=== PATIENT | female | born 1960 | race Caucasian/White ===

== ENCOUNTER 2016-11-01 12:46 | Emergency (ER) | payer OTHER ==
[2016-11-01 12:54] VITALS: BP 131/64; PULSE 93; TEMP 98; BMI 28.3
[2016-11-01] MEDS ORDERED: diphenhydrAMINE HCL 25 MG CAPSULE (FP) PO ONE ×2 (13:22→13:28)
--- NOTE | 2016-11-01 13:23 | PDOC ---
History of Present Illness - General Chief Complaint: Itching Stated Complaint: HEAD SWELLING Time Seen by Provider: 11/01/16 12:58 - History of Present Illness Initial Comments: 11/01/16 13:22 CHIEF COMPLAINT: itching to scalp, "swelling to forehead" HISTORY OF PRESENT ILLNESS: 56 yo F PMH of of benign meningioma (Removed 2004) which has recurred, anxiety and depression presents to fast track with itching to scalp and c/o of swelling to forehead. Patient reports that she used a hair dye two days ago and her scalp started itching and the tops of her ears "feel like it's burning." PAST MEDICAL HISTORY: Denies past medical history FAMILY HISTORY: Denies SOCIAL HISTORY:Denies tobacco, alcohol, illicit drug use. SURGICAL HISTORY: Denies ALLERGIES: No known drug allergies REVIEW OF SYSTEMS General/Constitutional: Denies fever or chills. Denies weakness, weight change. HEENT: Denies change in vision. Denies ear pain or discharge. Denies sore throat. Cardiovascular: Denies chest pain or shortness of breath. Respiratory: Denies cough, wheezing, or hemoptysis. Gastrointestinal: Denies nausea, vomiting, diarrhea or constipation. Denies rectal bleeding. Genitourinary: Denies dysuria, frequency, or change in urination. Musculoskeletal: Denies joint or muscle swelling or pain. Denies neck or back pain. Skin: Itching to scalp, "swelling to top of forehead." PHYSICAL EXAM General Appearance: Well-appearing, appropriately dressed. No apparent distress. HEENT: EOMI, PERRLA. Neck: Supple. Trachea midline. No tenderness, rigidity, carotid bruit, stridor , lymphadenopathy, or thyromegaly. Respiratory/Chest: Lungs CTAB. Cardiovascular: RRR. S1, S2. Gastrointestinal/Abdominal: Normal bowel sounds. Abdomen soft, non-distended. No tenderness or rebound tenderness. No organomegaly, pulsatile mass, guarding , hernia, hepatomegaly, splenomegaly. Lymphatic: No adenopathy, tenderness. Musculoskeletal/Extremities: Normal inspection. FROM of all extremities, normal capillary refill. Pelvis Stable. No CVA tenderness. No tenderness to extremities, pedal edema, swelling, erythema or deformity. Integumentary: Appropriate color, dry, warm. No cyanosis, erythema, jaundice or rash Neurologic: financial market dealer II-XII intact. Fully oriented, alert. Appropriate mood/affect. Motor strength 5/5. No appreciable EOM palsy, facial droop or sensory deficit. 11/01/16 13:24 11/01/16 13:32 Past History - Past Medical History Allergies/Adverse Reactions: Allergies Allergy/AdvReac Type Severity Reaction Status Date / Time No Known Drug Allergies Allergy Verified 11/01/16 12:53 Home Medications: Ambulatory Orders Clonazepam [Klonopin] 0.5 mg PO BID 09/30/12 Paroxetine HCl 25 mg PO DAILY 05/02/15 Aspirin [ASA -] 81 mg PO DAILY 01/03/16 Doxepin HCl [Sinequan -] 25 mg PO HS 01/03/16 Phenazopyridine HCl [Pyridium] 200 mg PO TID PRN #6 tablet 03/16/16 Loratadine [Claritin] 10 mg PO DAILY #14 tablet 11/01/16 Anemia: No Asthma: Yes Cancer: No Cardiac Disorders: No CVA: No COPD: No CHF: No Dementia: No Diabetes: No GI Disorders: Yes (gastritis) Disorders: No HTN: No Hypercholesterolemia: Yes Liver Disease: No Psychiatric Problems: Yes (ANXIETY DEPRESSION) Seizures: No Thyroid Disease: Yes (pituitary tumor) - Surgical History Abdominal Surgery: No Appendectomy: No Cardiac Surgery: No Cholecystectomy: No Lung Surgery: No Neurologic Surgery: Yes (benign brain tumor surgery 2004) Orthopedic Surgery: No (left knee ligament sx) - Immunization History Immunization Up to Date: Yes - Psycho/Social/Smoking Cessation Hx Anxiety: No Suicidal Ideation: No Smoking Status: No Smoking History: Never smoked Have you smoked in the past 12 months: No Number of Cigarettes Smoked Daily: 0 If you are a former smoker, when did you quit?: 2004 Hx Alcohol Use: No Drug/Substance Use Hx: No Substance Use Type: None Hx Substance Use Treatment: No *Physical Exam - Vital Signs Last Vital Signs Temp Pulse Resp BP Pulse Ox 98.0 F 93 H 20 131/64 96 11/01/16 12:50 11/01/16 12:50 11/01/16 12:50 11/01/16 12:50 11/01/16 12:50 Medical Decision Making - Medical Decision Making 11/01/16 13:32 56 yo F PMH of of benign meningioma (Removed 2004) which has recurred, anxiety and depression presents to fast track with itching to scalp and c/o of swelling to forehead. -Benadryl 25 mg *DC/Admit/Observation/Transfer Diagnosis at time of Disposition: Allergic reaction Qualifiers: Encounter type: initial encounter Qualified Code(s): T78.40XA - Allergy, unspecified, initial encounter - Discharge Dispostion Disposition: HOME Condition at time of disposition: Stable Admit: No - Prescriptions Prescriptions: Loratadine [Claritin] 10 mg PO DAILY #14 tablet - Referrals Referrals: Joyce House MD [Staff Physician] - - Patient Instructions Printed Discharge Instructions: DI for Contact Dermatitis Additional Instructions: Please take medication as prescribed. Follow up with the director of special education as discussed for further evaluation of your skin allergies. Do NOT use any hair dye until you have been evaluated by the director of special education to avoid contact with any ingredients that may trigger an allergic reaction. If you experience any difficulty breathing, shortness of breath, swelling to your tongue, mouth, lips , or throat, please return to the ER.
== END 2016-11-01 13:36 | disposition home or self-care (01) ==
LOC: JERFT 12:46
DX: T49.4X1A Poisoning by keratolytics, keratoplastics, and other hair treatment drugs and preparations, accidental (unintentional), initial encounter (principal); L29.8 Other pruritus; Y92.89 Other specified places as the place of occurrence of the external cause
CPT/HCPCS: 99281-25

== ENCOUNTER 2016-12-07 19:30 | Emergency (ER) | payer OTHER ==
[2016-12-07 19:48] VITALS: BP 140/71; PULSE 89; TEMP 98.4; BMI 28.3
[2016-12-07] MEDS ORDERED: MAG HYDROX/AL HYDROX/SIMETH 30 ML UNIT-DOSE CUP PO ONE (22:17)
[2016-12-07] MEDS ORDERED: SODIUM CHLORIDE 1,000 ML IV STA (22:17)
[2016-12-07] MEDS ORDERED: PANTOPRAZOLE 40 MG TABLET (FP) PO ONE (22:18)
[2016-12-07] MEDS ORDERED: MAG HYDROX/AL HYDROX/SIMETH 30 ML UNIT-DOSE CUP ONE (22:35)
[2016-12-07] MEDS ORDERED: PANTOPRAZOLE 40 MG TABLET (FP) ONE (22:35)
[2016-12-07 22:50] LABS: BASOPHIL 0.6 % (0-2.0); EOSINOPHIL 3.3 % (0-4.5); MCH 27.3 pg (25.7-33.7); MCHC 32.5 g/dl (32.0-36.0); MEAN CELL VOLUME 83.8 fl (80-96); MEAN PLT VOLUME 8.9 fl (7.5-11.1); PLATELET COUNT 234 K/MM3 (134-434); WHITE BLOOD COUNT 6.6 K/mm3 (4.0-10.0)
[2016-12-07 22:58] LABS: URINE APPEARANCE CLEAR; URINE BILIRUBIN NEGATIVE (NEGATIVE); URINE BLOOD NEGATIVE (NEGATIVE); URINE COLOR STRAW; URINE GLUCOSE (UA) NEGATIVE (NEGATIVE); URINE KETONE NEGATIVE (NEGATIVE); URINE LEUK ESTERASE TRACE (NEGATIVE); URINE NITRITE NEGATIVE (NEGATIVE); URINE PROTEIN NEGATIVE (NEGATIVE); URINE UROBILINOGEN NEGATIVE mg/dL (0.2-1.0)
[2016-12-07 23:02] LABS: URINE RBC 1 /hpf (0-3); URINE WBC 2 /hpf (3-5)
[2016-12-07 23:23] LABS: ALBUMIN 3.8 g/dl (3.4-5.0); ANION GAP 6 (8-16); BILIRUBIN,TOTAL 0.3 mg/dL (0.2-1.0); CALCIUM 9.1 mg/dL (8.5-10.1); CO2 31 mmol/L (21-32); CREATININE 0.6 mg/dL (0.55-1.02); GLUCOSE,RANDOM 99 mg/dL (74-106); SGOT/AST 19 U/L (15-37); SGPT/ALT 31 U/L (12-78); TOT PROT 7.4 g/dl (6.4-8.2)
[2016-12-07 23:26] LABS: ALK PHOS 196 U/L (45-117); CPK 154 IU/L (26-192); TROPONIN I < 0.02 ng/ml (0.00-0.05)
--- NOTE | 2016-12-08 00:31 | PDOC ---
History of Present Illness - General Chief Complaint: Pain Stated Complaint: STOMACH PAIN/EMPLOYEE Time Seen by Provider: 12/07/16 22:00 History Source: Patient Exam Limitations: No Limitations - History of Present Illness Initial Comments: 12/08/16 01:01 This is a 56 yo woman with PMH pituitary adenoma s/p resection '05, anxiety, asthma, OA, GERD and IMER-BSO who presents with sudden onset epigastric burning at approximately 6pm. She states she woke up with the burning after a nap. She drank some milk and ate some white bread with improvement of symptoms. She now has a sour taste in her mouth. She denies chest pain, SOB, vomiting, dizziness , jaw pain or nausea. She states the pain is c/w her usual GERD. Timing/Duration: 4-6 hours Severity: mild Modifying Factors: improves with: eating (better after drinking milk and eating white bread) Associated Symptoms: denies: denies symptoms Past History - Past Medical History Allergies/Adverse Reactions: Allergies Allergy/AdvReac Type Severity Reaction Status Date / Time No Known Drug Allergies Allergy Verified 12/07/16 19:44 Home Medications: Ambulatory Orders Clonazepam [Klonopin] 0.5 mg PO BID 09/30/12 Paroxetine HCl 25 mg PO DAILY 05/02/15 Aspirin [ASA -] 81 mg PO DAILY 01/03/16 Doxepin HCl [Sinequan -] 25 mg PO HS 01/03/16 Phenazopyridine HCl [Pyridium] 200 mg PO TID PRN #6 tablet 03/16/16 Loratadine [Claritin] 10 mg PO DAILY #14 tablet 11/01/16 Omeprazole 20 mg PO DAILY #30 capsule. 12/08/16 Anemia: No Asthma: Yes Cancer: No Cardiac Disorders: No CVA: No COPD: No CHF: No Dementia: No Diabetes: No GI Disorders: Yes (gastritis) Disorders: No HTN: No Hypercholesterolemia: Yes Liver Disease: No Psychiatric Problems: Yes (ANXIETY DEPRESSION) Seizures: No Thyroid Disease: Yes (pituitary tumor) - Surgical History Abdominal Surgery: No Appendectomy: No Cardiac Surgery: No Cholecystectomy: No Lung Surgery: No Neurologic Surgery: Yes (Pituitary benign brain tumor surgery 2004) Orthopedic Surgery: No (left knee ligament sx) - Immunization History Immunization Up to Date: Yes - Psycho/Social/Smoking Cessation Hx Anxiety: No Suicidal Ideation: No Smoking Status: No Smoking History: Never smoked Have you smoked in the past 12 months: No Number of Cigarettes Smoked Daily: 0 If you are a former smoker, when did you quit?: 2004 Information on smoking cessation initiated: No Hx Alcohol Use: No Drug/Substance Use Hx: No Substance Use Type: None Hx Substance Use Treatment: No Review of Systems - Review of Systems Able to Perform ROS?: Yes Is the patient limited [place] proficient: No Constitutional: No: Symptoms Reported HEENTM: Yes: Other (sour taste in mouth) Respiratory: No: Symptoms reported Cardiac (ROS): Yes: Other (epigastric burning) ABD/GI: Yes: Other (epigastric burning) : No: Symptoms Reported Musculoskeletal: No: Symptoms Reported Integumentary: No: Symptoms Reported Neurological: No: Symptoms reported *Physical Exam - Vital Signs Last Vital Signs Temp Pulse Resp BP Pulse Ox 98.4 F 89 20 140/71 99 12/07/16 19:44 12/07/16 19:44 12/07/16 19:44 12/07/16 19:44 12/07/16 19:44 - Physical Exam General Appearance: Yes: Appropriately Dressed. No: Apparent Distress HEENT: positive: EOMI, STEVE, Normal ENT Inspection, TMs Normal, Pharynx Normal Neck: positive: Trachea midline, Supple. negative: Tender Respiratory/Chest: positive: Lungs Clear, Normal Breath Sounds. negative: Chest Tender, Respiratory Distress, Accessory Muscle Use Cardiovascular: positive: Regular Rhythm, Regular Rate, S1, S2. negative: Edema , JVD, Murmur Musculoskeletal: positive: Normal Inspection. negative: CVA Tenderness Extremity: positive: Normal Capillary Refill, Normal Inspection, Normal Range of Motion, Pelvis Stable Integumentary: positive: Normal Color, Dry, Warm Neurologic: positive: program facilitator II-XII NML intact, Fully Oriented, Alert, Normal Mood/ Affect, Normal Response, Motor Strength 5/5 Heart Score/ECG Review - History History: Slightly suspicious - Electrocardiogram EKG: Normal - Age Age: 45-65 - Risk Factors Based on the list above the patient has:: No risk factors known - Troponin Troponin: </= normal limit - Score Heart Score - Total: 1 - ECG Intrepretation Rhythm: Regular Rhythm - Reading Reading: Normal - ECG Impressions Normal ECG: Yes ED Treatment Course - LABORATORY CBC & Chemistry Diagram: 08/03/17 22:37 12/07/16 22:37 - ADDITIONAL ORDERS Additional order review: Laboratory Results 12/07/16 12/07/16 22:37 22:37 Sodium 141 Potassium 4.1 Chloride 104 Carbon Dioxide 31 Anion Gap 6 L BUN 14 Creatinine 0.6 Creat Clearance w eGFR > 60 Random Glucose 99 Calcium 9.1 Total Bilirubin 0.3 D AST 19 ALT 31 D Alkaline Phosphatase 196 H D Creatine Kinase 154 Troponin I < 0.02 Total Protein 7.4 Albumin 3.8 Urine Color Straw Urine Appearance Clear Urine pH 7.0 Urine Protein Negative Urine Glucose (UA) Negative Urine Ketones Negative Urine Blood Negative Urine Nitrite Negative Urine Bilirubin Negative Urine Urobilinogen Negative Ur Leukocyte Esterase Trace Urine RBC 1 Urine WBC 2 Ur Epithelial Cells Rare 12/07/16 22:37 RBC 4.69 MCV 83.8 MCHC 32.5 RDW 13.0 MPV 8.9 Neutrophils % 49.0 Lymphocytes % 40.4 H Monocytes % 6.7 Eosinophils % 3.3 Basophils % 0.6 - RADIOLOGY Radiology Studies Ordered: Category Date Time Status CHEST PA & LAT [RAD] Stat Radiology 12/07/16 22:17 Ordered - Medications Given in the ED: ED Medications Discontinued Medications Generic Name Dose Route Start Last Admin Trade Name Freq PRN Reason Stop Dose Admin Al Hydroxide/Mg Hydroxide 30 ml 12/07/16 22:17 12/07/16 22:44 Mylanta Oral Suspension - PO 12/07/16 22:18 30 ml ONCE ONE Administration Sodium Chloride 1,000 mls @ 1,000 mls/hr 12/07/16 22:17 12/07/16 22:44 Normal Saline - IV 12/07/16 23:16 1,000 mls/hr ASDIR STA Administration Pantoprazole Sodium 40 mg 12/07/16 22:18 12/07/16 22:44 Protonix - PO 12/07/16 22:19 40 mg ONCE ONE Administration Medical Decision Making - Medical Decision Making 12/07/16 23:05 A/P: This is a 56 yo woman with PMH pituitary adenoma s/p resection '05, anxiety, asthma, OA, GERD and IMER-BSO who presents with sudden onset epigastric burning at approximately 6pm. She states she woke up with the burning after a nap. She drank some milk and ate some white bread with improvement of symptoms. She now has a sour taste in her mouth. She denies chest pain, SOB, vomiting, dizziness , jaw pain or nausea. She states the pain is c/w her usual GERD. - EKG - CBC, CMP, trop, UA - CXR - Maalox - Protonix 12/08/16 01:05 Feels better after Maalox and protonix. She is refusing CXR at this time. Troponin #1 (-). I discussed the physical exam findings, ancillary test results and final diagnoses with the patient. I answered all of the patient's questions. The patient was satisfied with the care received and felt comfortable with the discharge plan and treatment plan. The patient will call Dr. Raya within 24 hours to arrange follow-up and will return to the Emergency Department with any new, persistent or worsening symptoms. Will discharge. *DC/Admit/Observation/Transfer Diagnosis at time of Disposition: GERD (gastroesophageal reflux disease) Qualifiers: Esophagitis presence: without esophagitis Qualified Code(s): K21.9 - Gastro- esophageal reflux disease without esophagitis - Discharge Dispostion Admit: No - Prescriptions Prescriptions: Omeprazole 20 mg PO DAILY #30 capsule.dr - Referrals Referrals: Susi Donaldson MD [Primary Care Provider] - - Patient Instructions Printed Discharge Instructions: DI for Gastroesophageal Reflux Disease (GERD), GERD Diet Additional Instructions: Avoid greasy foods, spicy foods and alcohol. Keep well hydrated. Call Dr. Raya tomorrow for appointment as soon as possible. Return to ER for chest pain, shortness of breath, cough, dizziness or any other concerns.
--- NOTE | 2016-12-08 10:21 | EKG ---
Test Reason : Blood Pressure : / mmHG Vent. Rate : 077 BPM Atrial Rate : 080 BPM P-R Int : 000 ms QRS Dur : 084 ms QT Int : 390 ms P-R-T Axes : 000 021 032 degrees QTc Int : 441 ms Normal sinus rhythm with frequent APCs INCOMPLETE RBBB Confirmed by AUBRIE BRYSON MD ([id number]) on 12/08/2016 10:20:40 AM Referred By: Confirmed By:AUBRIE BRYSON MD
== END 2016-12-08 00:37 | disposition home or self-care (01) ==
LOC: JER 19:30
PROC: 3E0337Z Introduction of Electrolytic and Water Balance Substance into Peripheral Vein, Percutaneous Approach (ICD-10-PCS; principal; 2016-12-07)
DX: K21.9 Gastro-esophageal reflux disease without esophagitis (principal); J45.909 Unspecified asthma, uncomplicated; M19.90 Unspecified osteoarthritis, unspecified site; F41.9 Anxiety disorder, unspecified
CPT/HCPCS: 36415; 80053; 81003; 81015; 82553; 84484; 85025; 93005; 93010; 99282-25

== ENCOUNTER 2018-07-02 12:21 | Day surgery (SDC) | payer OTHER ==
[2018-06-17 17:16] VITALS: BMI 30.2
--- NOTE | 2018-07-02 08:07 | HP ---
Satellite [facility] - Chief Complaint Chief Complaint: left knee pain - Past Medical History Allergies/Adverse Reactions: Allergies Allergy/AdvReac Type Severity Reaction Status Date / Time No Known Drug Allergies Allergy Verified 06/17/18 17:07 THERAPEUTIC SUPPORT STAFF: Yes: Migraine, Other (Cervical spondylosis,Depression, Lumbar radiculopathy ) Pulmonary: Yes: Asthma ...LMP: 01/17/10 Rheumatology: Yes: Other (Arthritis) - Current Medications Current Medications: Home Medications Medication Instructions Recorded Clonazepam [Klonopin] 0.5 mg PO BID 09/30/12 Paroxetine HCl 25 mg PO DAILY 05/02/15 Aspirin [ASA -] 81 mg PO DAILY 01/03/16 Doxepin HCl [Sinequan -] 25 mg PO HS 01/03/16 Phenazopyridine HCl [Pyridium] 200 mg PO TID PRN #6 tablet 03/16/16 Loratadine [Claritin] 10 mg PO DAILY #14 tablet 11/01/16 Omeprazole 20 mg PO DAILY #30 capsule. 12/08/16 Albuterol Sulfate Inhaler - 1 - 2 inh PO QID PRN 06/17/18 [Ventolin Hfa Inhaler -] Satellite Physical Exam - Physical Examination General Appearance: Well Nourished, Well Developed, Alert & Oriented x3 ENT: Clear Lung: Normal air movement Heart: Regular rate & rhythm Extremities: Other (left knee- + swelling, + ttp laterally, decr rom, nvi xrays show grade 4 lateral djd) Neurological: Intact, Alert, Oriented Satellite Impression/Plan - Impression/Plan Impression: left knee lateral djd Operative Procedure: left lateral aydee ukr Date to be Performed: 07/02/18
[2018-07-02] MEDS ORDERED: CELECOXIB 200 MG CAPSULE PO ONE (12:41)
[2018-07-02] MEDS ORDERED: oxyCODONE HCL 10 MG SUSTAINED ACTING TABLET PO ONE (12:41)
[2018-07-02] MEDS ORDERED: GABAPENTIN 300 MG CAPSULE (FP) PO ONE (12:41)
[2018-07-02] MEDS ORDERED: ROPIVICAINE 0.2%/MORPH PF/KETOROLAC - 51ML DISP.SYRINGE IA ONE ×3 (12:41→17:18)
[2018-07-02] MEDS ORDERED: TRANEXAMIC ACID 1000 MG/10 ML VIAL IVPUSH ONE (12:41)
[2018-07-02] MEDS ORDERED: CEFAZOLIN 1 GM/D5W 1 GRAM/50 ML BAG IVPB ONE (12:41)
[2018-07-02] MEDS ORDERED: BUPIVACAINE HCL/PF (5 MG/ML) 30 ML VIAL IJ ONE (13:42)
[2018-07-02] MEDS ORDERED: MIDAZOLAM HCL 2 MG/2 ML SINGLE DOSE VIAL ONE ×2 (13:42→15:49)
[2018-07-02] MEDS ORDERED: ceFAZolin SODIUM 1 GM VIAL ONE (14:07)
[2018-07-02] MEDS ORDERED: THROMBIN (BOVINE) 5,000 UNIT VIAL TP ONE ×2 (14:09→17:02)
[2018-07-02] MEDS ORDERED: MAG HYDROX/AL HYDROX/SIMETH 30 ML UNIT-DOSE CUP PO PRN (15:03)
[2018-07-02] MEDS ORDERED: ONDANSETRON 4 MG/2 ML VIAL IVPUSH PRN ×2 (15:03→17:58)
[2018-07-02] MEDS ORDERED: ALBUTEROL SO4 8 GM HFA INHALER IH PRN (15:04)
[2018-07-02] MEDS ORDERED: LACTATED RINGERS SOLUTION 1,000 ML IV SCH (15:15)
[2018-07-02] MEDS ORDERED: PROPOFOL 20 ML ONE ×2 (15:49)
[2018-07-02] MEDS ORDERED: TRANEXAMIC ACID 1000 MG/10 ML VIAL ONE (15:49)
[2018-07-02] MEDS ORDERED: GELATIN, ABSORBABLE 100 EACH SPONGE TP ONE (17:01)
--- NOTE | 2018-07-02 17:35 | OP ---
Operative Note - Note: Operative Date: 07/02/18 Pre-Operative Diagnosis: left knee lateral compartment osteoarthritis Operation: left knee lateral Makoplasty/Partial knee replacement Implants: Amandeep Booker Femur #2, Tibia #2, Poly 8mm Surgeon: Shahab [employer] Teacher: Pola Carmona Anesthesiologist/C UNIX DEVELOPER: Vera Briceno Anesthesia: Spinal, MAC Specimens Removed: bone, cartilage Estimated Blood Loss (mls): 25 Drains, Volume Out (mls): 0 Blood Volume Replaced (mls): 0 Fluid Volume Replaced (mls): 1,000 Operative Report Dictated: Yes
[2018-07-02] MEDS ORDERED: PROMETHAZINE HCL 25 MG/1 ML VIAL IVPUSH PRN (17:58)
[2018-07-02] MEDS ORDERED: oxyCODONE HCL 5 MG TABLET PO PRN ×2 (17:58)
[2018-07-02] MEDS ORDERED: ACETAMINOPHEN 325 MG TABLET (FP) PO ONE (18:30)
[2018-07-02] MEDS: clonazePAM 0.5 MG TABLET PO SCH (21:01)
[2018-07-02] MEDS: SENNOSIDES/DOCUSATE COMBO (SENNA PLUS) TABLET (UD) PO SCH (21:02)
[2018-07-02] MEDS ORDERED: oxyCODONE HCL 10 MG SUSTAINED ACTING TABLET PO SCH (22:00)
[2018-07-02] MEDS ORDERED: DOXEPIN HCL 25 MG CAPSULE PO SCH (22:00)
[2018-07-02] MEDS: CEFAZOLIN 1 GM/D5W 1 GM/50 ML BAG IVPB SCH (23:00)
[2018-07-03] MEDS: CEFAZOLIN 1 GM/D5W 1 GM/50 ML BAG IVPB SCH (06:27)
[2018-07-03] MEDS: ACETAMINOPHEN 325 MG TABLET (FP) PO SCH ×3 (06:27→11:54)
[2018-07-03] MEDS ORDERED: ASPIRIN 325 MG TABLET PO SCH (08:00)
[2018-07-03 08:17] LABS: ANION GAP 5 MMOL/L (8-16); BLOOD UREA NITROGEN 12 mg/dl (7-18); CALCIUM 8.7 mg/dl (8.5-10); CHLORIDE 101 mmol/L (98-107); CO2 31 mmol/L (21-32); CREATININE 0.6 mg/dl (0.55-1.3); GLUCOSE,RANDOM 207 mg/dl (74-106); POTASSIUM 3.9 mmol/L (3.5-5.1); SODIUM 137 mmol/L (136-145)
--- NOTE | 2018-07-03 09:34 | PN ---
Progress Note (short form) - Note Progress Note: Ortho Pt seen and examined s/p left lateral aydee ukr pod #1 Selected Entries 07/03/18 03:00 Temperature 98.4 F Pulse Rate 76 Respiratory 20 Rate Blood Pressure 110/42 L Laboratory Tests 07/03/18 07:45 Potassium 3.9 dressing c/d/i, calf soft, nt rom 0-60,nvi a/p PT dvt ppx pain control d/c home today f/u in 1 week
--- NOTE | 2018-07-03 09:35 | DS ---
Physical Examination Vital Signs: Vital Signs Temperature 98.4 F 07/03/18 03:00 Pulse Rate 76 07/03/18 03:00 Respiratory Rate 20 07/03/18 03:00 Blood Pressure 110/42 L 07/03/18 03:00 O2 Sat by Pulse Oximetry (%) 96 07/03/18 07:39 Labs: CBC, BMP 07/03/18 07:45 Discharge Summary Reason For Visit: OSTEOARTHRITIS Procedures: Principal: left lateral aydee ukr Hospital Course: admitted for elective left lateral aydee ukr, uneventful post-op, stable for d/c Condition: Good - Instructions Diet, Activity, Other Instructions: Post-op Instructions-Partial Knee Replacement Call the office for a follow-up appointment in 1 week - [phone] Aspirin 325mg daily for 6 weeks. Pain medication was sent into your pharmacy. Apply Graduated Compression Stockings (TEDs) to both lower extremities- remove daily for hygiene ONLY Apply Sequential Compression Device (SCDs) to both Lower extremities remove for PT and hygiene ONLY Apply cold packs to affected area for 15 minutes every 2 hours. Physical Therapist will come to your home for the first 5 days. You will be set up with outpatient PT at your first post-operative visit. Patient may ambulate as tolerated-encourage self care (at least every 2-3 hours while awake) with walker or cane Maintain Aquacel (waterproof) dressing to operative wound (will be removed by surgeon at first office visit) Shower with Aquacel dressing in place-if Aquacel integrity compromised, remove and apply dry sterile dressing and notify Orthopedist. DO NOT SHOWER unless Orthopedists approves without Aquacel dressing CONTACT THE OFFICE FOR ANY CHANGE IN YOUR CONDITION (for example-fever greater than 102 degrees, excessive bleeding from operative site, purulent drainage, severe swelling or pain) GO TO THE EMERGENCY ROOM IF THERE IS A MEDICAL EMERGENCY Knee Precautions: * Keep a rolled towel under affected heel while in bed or chair (to keep knee in extension) * Keep affected leg elevated except during mealtimes * DO NOT PLACE PILLOW UNDER AFFECTED KNEE * If you have any questions, please do not hesitate to call the office - . Referrals: Wilfredo Michel MD [Staff Physician] - Disposition: VNS/HOME HEALTH CARE - Home Medications Comprehensive Discharge Medication List: Ambulatory Orders Clonazepam [Klonopin] 0.5 mg PO BID 09/30/12 Paroxetine HCl 25 mg PO DAILY 05/02/15 Doxepin HCl [Sinequan -] 25 mg PO HS 01/03/16 Omeprazole 20 mg PO DAILY #30 capsule. 12/08/16 Albuterol Sulfate Inhaler - [Ventolin HFA Inhaler -] 1 - 2 inh PO QID PRN Aspirin [ASA -] 325 mg PO DAILY@0800 tablet 07/02/18 Oxycodone HCl/Acetaminophen [Percocet 5-325 mg Tablet -] 1 - 2 tab PO Q6H #50 tab MDD 8 07/02/18
[2018-07-03] MEDS: clonazePAM 0.5 MG TABLET PO SCH (09:51)
[2018-07-03] MEDS: SENNOSIDES/DOCUSATE COMBO (SENNA PLUS) TABLET (UD) PO SCH (09:53)
[2018-07-03] MEDS ORDERED: MULTIVITAMINS (DAILY MVI) TABLET (FP) PO SCH (10:00)
[2018-07-03] MEDS ORDERED: PANTOPRAZOLE 40 MG TABLET (FP) PO SCH (10:00)
[2018-07-03] MEDS ORDERED: PARoxetine HCL 10 MG TABLET (FP) PO SCH (10:00)
[2018-07-03 11:57] VITALS: PULSE 84
--- NOTE | 2018-07-03 13:11 | SPEC ---
DATE OF OPERATION: 07/02/2018 PREOPERATIVE DIAGNOSIS: Left knee lateral compartment osteoarthritis. POSTOPERATIVE DIAGNOSIS: Left knee lateral compartment osteoarthritis. PROCEDURE: Left knee lateral compartment partial knee replacement/lateral MAKOplasty. SURGEON: Raúl Pike MD ROCKBOARD LATHER: JAIME Toribio ANESTHESIOLOGIST: Vera Chavarria, REF-ARMORER TECHNICIAN ANESTHESIA: Spinal anesthesia with sedation. DRAINS: None. COMPLICATIONS: None. SPECIMEN: Cartilage and bone, left knee. ANTIBIOTICS: She did receive 2 g of IV Ancef. BLOOD LOSS: Minimal. BLOOD GIVEN: None. FLUID REPLACEMENT: 1000 mL INDICATION FOR PROCEDURE: After understanding these and other potential risks which were discussed, the patient elected to go forward with this procedure. DESCRIPTION OF PROCEDURE: The patient was brought to the operating room, peripheral IV placed and IV sedation given. Ancef 1 g IV was given. MAC anesthesia was induced after spinal anesthesia was performed. The patient was placed in the supine position. A tourniquet was applied to the left upper thigh. The left lower extremity was prepped and draped in sterile fashion and placed into the standard YURI leg moore. The case was begun by making a longitudinal incision along the medial aspect of the patella. Subcutaneous hemostasis was achieved with a Bovie cautery. Dissection was done with the Bovie down to the medial aspect of the patella and the medial parapatellar approach incision was made. Hemostasis was achieved; the patella was retracted in the lateral direction. The soft tissue dissection was completed distally. The tissue off the medial aspect of the proximal tibia was performed. Next, the tibia checkpoint was placed in and the femoral checkpoint was placed in and the leg was put through circles for hip orientation. We put in 4 Steinmann pins in the standard fashion, 2 in the tibia, 2 in the femur, and attached the appropriate clamps for the tibial and the femoral arrays. Next, the standard YURI calibration was done with 40 points on the femur, 40 points on the tibia. Additional checkpoints were done for the femoral trochlear component. We then altered the position of the prosthesis in the virtual MAKOplasty and ultimately decided we would put in a 2-size tibia, 2-size femur, 29-size patella button, and a No. 4 size femoral trochlear component. Next, using the standard technique with the YURI-controlled robot, we took out the appropriate bone and did the bone resection on the femur, the tibia, the femoral trochlea, and the undersurface of the patella was done freehand with an oscillating saw. We then put on the different patellar buttons; it fit a 29-mm button quite well. The resection was appropriate as per the calipers and we drilled the holes in the patella as well. All the trial components were placed. The knee was put through ranges of motion and it was seen to be quite stable in all planes with excellent flexion and extension, it was not too tight. Next, the entire area was irrigated and washed out. Gelfoam soaked with thrombin was placed on all the exposed bone beds. A rongeur was used to remove the osteophytes and any excess meniscus. It was copiously irrigated and washed out. All extra tissue was removed. We then used 2 bags of Simplex cement and put in a first No. 2 size tibial component, No. 2 size femoral component, put an 8-mm and then an 8-mm polyethylene component. It was compressed down, all excess cement was removed. Next, we put in another 29-size patella button which was also precoated and held in place with a clamp and the size 4 trochlear implant which was also impacted and placed and excess saline removed. The knee was put through a range of motion and was all seen to be quite good after the [employer] computer calibration showed it had the appropriate flexion and extension gaps. The excess cement was removed. We put in a real No. 8-mm polyethylene tibial component and impacted it into place. Everything was copiously irrigated and washed out. Small debris and cement pieces were removed. No other abnormalities were seen. I was quite happy with the position of the prosthesis components as well as the range of motion which was from 0 degrees of extension to well beyond 100 degrees of flexion. Nothing was too tight, it was completely stable throughout. The area was irrigated and washed out and closure done. The medial parapatellar approach was closed with 0 Vicryl suture. The deep dermal and fat layer was closed with 0 Vicryl suture, 2-0 Vicryl was used to close the deep dermal layer. Final skin reapproximation was done with horizontal mattress 3-0 nylon sutures. The distal and proximal holes where the Steinmann pins were for the tibial and femoral arrays were washed out and closed with 4-0 undyed Vicryl and then Dermabond glue. Dermabond was also used to close the main incision and the area was then copiously washed, dried, covered with two 4-inch and one 10-inch Aquacel and then an Alex bandage. Patient received tranexamic acid twice during the case. Total operative time was approximately 1 hour and 5 minutes. The size of the components was femur size 2, tibia size 2, and polyethylene insert 8 mm. There were no complications during the case. Blood loss was 100 mL. Patient was stable throughout and she was brought to the regular recovery room in stable condition. RAÚL PIKE M.D. [id number]
--- NOTE | 2018-07-03 14:16 | PN ---
Progress Note (short form) - Note Progress Note: ANESTHESIA POSTOP 58 yo female POD#1 s/p L lateral knee YURI Patient sleeping in chair in NAD, Reports pain is adequately controlled, tolerating PO VSS, Afebrile Encouraged IS and active participation in PT
[2018-07-03 14:39] VITALS: BP 113/44; TEMP 98.1
--- NOTE | 2018-07-05 16:24 | PATH ---
Surgical Pathology Report Patient Name: TAMARA GRANGER Med. Rec. #: [id number] /Age/Gender: 1960 (Age: 58) / F Account: [id number] Location: [facility] MED-SURG Taken: 07/02/2018 Received: 07/02/2018 Reported: 07/05/2018 Physicians: Shahab Laurent M.D. Specimen(s) Received LEFT KNEE BONES Clinical History Left knee osteoarthritis Final Diagnosis KNEE BONE, LEFT, TOTAL KNEE REPLACEMENT: DEGENERATIVE JOINT DISEASE. Electronically Signed Josey Stewart M.D. Gross Description Received in formalin labeled "left knee bones," is a 3.8 x 2.3 x 0.5 cm padilla, irregular portion of bone. No areas of eburnation are identified. The articular surface is padilla and focally granular. The underlying trabecular bone is yellow and hard. A claims service representative section is submitted in one cassette, following decalcification. 07/03/201807/03/2018
== END 2018-07-03 16:31 | disposition home health service (06) ==
LOC: FASU 12:21 → FASUSAT 12:21 → FM/S 12:41 → FASUSAT 07-03 16:31
PROVIDERS: ATTEND Orthopaedic Surgery
PROC: 8E0YXBZ Computer Assisted Procedure of Lower Extremity (ICD-10-PCS; 2018-07-02)
PROC: 8E0Y0CZ Robotic Assisted Procedure of Lower Extremity, Open Approach (ICD-10-PCS; 2018-07-02)
PROC: 0SRD0M9 Replacement of Left Knee Joint with Lateral Unicondylar Synthetic Substitute, Cemented, Open Approach (ICD-10-PCS; principal; 2018-07-02 15:59)
DX: M17.12 Unilateral primary osteoarthritis, left knee (principal); M54.16 Radiculopathy, lumbar region; M47.892 Other spondylosis, cervical region; J45.909 Unspecified asthma, uncomplicated; M19.90 Unspecified osteoarthritis, unspecified site
CPT/HCPCS: 20985; 27446; C1776; S2900; 36415; 73560-TC-LT-FY; 80048; 88304-TC; 88311-TC; 94760; 97116-GP; 97163-GP

== ENCOUNTER 2018-07-27 16:11 | Emergency (ER) | payer OTHER ==
[2018-07-27 16:17] VITALS: TEMP 97.8; BMI 30.1
--- NOTE | 2018-07-27 18:04 | PDOC ---
History of Present Illness - General Chief Complaint: Rectal Bleed Stated Complaint: RECTAL BLEED Time Seen by Provider: 07/27/18 17:38 - History of Present Illness Initial Comments: 07/27/18 17:59 Patient is a 58 y/o female with a history of benign meningioma (2004), anxiety, depression, constipation, and arthritis who presents for blood per rectum. Patient reports on sunday she had pork chops and had some cramps after. On Sunday she went to the bathroom and noted blood on the paper. Today she tried to go to the bathroom and she said it was very hard and she had to pus, she noted more blood. Patient states she typically has constipation but drinks two prune juices a day. She has not been drinking her prune juice for the last few weeks as she had a left knee replacement and decided to stop drinking it. She has been taking hydrocodone for the pain after the knee replacement. Denies any sick contacts, fevers, chills, nausea, or vomiting. Past History - Past Medical History Allergies/Adverse Reactions: Allergies Allergy/AdvReac Type Severity Reaction Status Date / Time No Known Drug Allergies Allergy Verified 07/27/18 16:14 Home Medications: Ambulatory Orders Clonazepam [Klonopin] 0.5 mg PO BID 09/30/12 Paroxetine HCl 25 mg PO DAILY 05/02/15 Doxepin HCl [Sinequan -] 25 mg PO HS 01/03/16 Omeprazole 20 mg PO DAILY #30 capsule. 12/08/16 Albuterol Sulfate Inhaler - [Ventolin HFA Inhaler -] 1 - 2 inh PO QID PRN Aspirin [ASA -] 325 mg PO DAILY@0800 tablet 07/02/18 Oxycodone HCl/Acetaminophen [Percocet 5-325 mg Tablet -] 1 - 2 tab PO Q6H #50 tab MDD 8 07/02/18 Anemia: No Asthma: Yes Cancer: No Cardiac Disorders: No CVA: No COPD: No CHF: No Dementia: No Diabetes: No GI Disorders: Yes (gastritis) Disorders: No HTN: No Hypercholesterolemia: Yes Liver Disease: No Psychiatric Problems: Yes (ANXIETY DEPRESSION) Seizures: No Thyroid Disease: Yes (pituitary tumor) - Surgical History Abdominal Surgery: No Appendectomy: No Cardiac Surgery: No Cholecystectomy: No Lung Surgery: No Neurologic Surgery: Yes (Pituitary benign brain tumor surgery 2004) Orthopedic Surgery: No (left knee ligament sx) - Immunization History Immunization Up to Date: Yes - Suicide/Smoking/Psychosocial Hx Smoking Status: No Smoking History: Never smoked Have you smoked in the past 12 months: No Number of Cigarettes Smoked Daily: 0 If you are a former smoker, when did you quit?: 2004 Information on smoking cessation initiated: No Hx Alcohol Use: No Drug/Substance Use Hx: No Substance Use Type: None Hx Substance Use Treatment: No Review of Systems - Review of Systems Constitutional: No: Chills, Fever Respiratory: No: Cough, Shortness of Breath Cardiac (ROS): No: Chest Pain ABD/GI: Yes: Constipated, Rectal Bleeding. No: Diarrhea, Nausea *Physical Exam - Vital Signs Last Vital Signs Temp Pulse Resp BP Pulse Ox 97.8 F 101 H 16 104/57 L 97 07/27/18 16:14 07/27/18 16:14 07/27/18 16:14 07/27/18 16:14 07/27/18 16:14 - Physical Exam Comments: 07/27/18 18:05 GENERAL: A&O x3, no acute distress HEART: RRR, no murmurs, rubs, or gallops LUNGS: CTAL B/L ABDOMEN: soft, non tender RECTAL: no external hemorrhoids or fissures, no internal hemorrhoids felt, stool in the vault, some discolored stool on blood EXTREMITIES: no pitting edema Moderate Sedation - Procedure Monitoring Vital Signs: Procedure Monitoring Vital Signs Temperature 97.8 F 07/27/18 16:14 Pulse Rate 101 H 07/27/18 16:14 Respiratory Rate 16 07/27/18 16:14 Blood Pressure 104/57 L 07/27/18 16:14 O2 Sat by Pulse Oximetry (%) 97 07/27/18 16:14 ED Treatment Course - LABORATORY CBC & Chemistry Diagram: 07/27/18 22:04 07/27/18 18:00 Medical Decision Making - Medical Decision Making 07/27/18 18:07 f/u CBC, CMP, stool occult blood 07/27/18 18:48 repeat CBC in four hours and repeat Vitals 07/27/18 22:28 CBC okay, vitals stable, discuss follow up as an outpatient *DC/Admit/Observation/Transfer Diagnosis at time of Disposition: Constipation Qualifiers: Constipation type: drug induced constipation Qualified Code(s): K59.03 - Drug induced constipation - Discharge Dispostion Disposition: HOME Condition at time of disposition: Good - Referrals Referrals: Susi Donaldson MD [Primary Care Provider] - Luther Guzman DO [Staff Physician] - - Patient Instructions Printed Discharge Instructions: Constipation Additional Instructions: You came in to the Emergency Department for blood from your rectum. We checked your hemoglobin levels (red blood cells) and they are stable. Please make an appointment with Dr. Guzman for a follow up colonoscopy. The colonoscopy will give a better visualization of your colon to look for any abnormalities such as cancer or infections. Please continue your home medications as prescribed. Return to the Emergency Department if you have nausea, vomiting, diarrhea, dizziness, chest pain, or shortness of breath. - Post Discharge Activity
[2018-07-27 18:17] LABS: HEMATOCRIT 37.2 % (32.4-45.2); HEMOGLOBIN 12.5 GM/dL (10.7-15.3); MCH 28.8 pg (25.7-33.7); MCHC 33.6 g/dl (32.0-36.0); MEAN CELL VOLUME 85.7 fl (80-96); PLATELET COUNT 276 K/MM3 (134-434); RBC 4.34 M/mm3 (3.60-5.2); RDW 13.8 % (11.6-15.6); WHITE BLOOD COUNT 8.4 K/mm3 (4.0-10.0)
[2018-07-27 19:10] LABS: ALBUMIN 3.8 g/dl (3.4-5.0); ALK PHOS 135 U/L (45-117); ANION GAP 8 MMOL/L (8-16); BILIRUBIN,TOTAL 0.3 mg/dL (0.2-1); BLOOD UREA NITROGEN 10 mg/dL (7-18); CALCIUM 9.1 mg/dL (8.5-10.1); CHLORIDE 105 mmol/L (98-107); CO2 27 mmol/L (21-32); CREATININE 0.7 mg/dL (0.55-1.3); GLUCOSE,RANDOM 93 mg/dL (74-106); POTASSIUM 4.6 mmol/L (3.5-5.1); SGOT/AST 20 U/L (15-37); SGPT/ALT 24 U/L (13-61); SODIUM 139 mmol/L (136-145); TOT PROT 7.7 g/dl (6.4-8.2)
[2018-07-27 22:11] LABS: HEMATOCRIT 37.2 % (32.4-45.2); HEMOGLOBIN 12.5 GM/dL (10.7-15.3); MCH 28.9 pg (25.7-33.7); MCHC 33.6 g/dl (32.0-36.0); MEAN CELL VOLUME 85.9 fl (80-96); MEAN PLT VOLUME 8.9 fl (7.5-11.1); PLATELET COUNT 274 K/MM3 (134-434); RBC 4.33 M/mm3 (3.60-5.2); RDW 13.8 % (11.6-15.6); WHITE BLOOD COUNT 8.5 K/mm3 (4.0-10.0)
[2018-07-27 22:40] VITALS: BP 119/57; PULSE 86
--- NOTE | 2018-07-27 23:07 | PDOC ---
Attending Attestation - Resident Resident Name: Airam Espana - ED Attending Attestation I have performed the following: I have examined & evaluated the patient, The case was reviewed & discussed with the resident, I agree w/resident's findings & plan, Exceptions are as noted - HPI HPI: 07/27/18 22:53 The patient is a 58 year old female with a past medical history of benign meningioma (removed 2004), anxiety, depression, constipation, and arthritis here today for evaluation of rectal bleeding. The patient reports that she noticed bright red blood streaks on the toilet paper when she wiped after her bowel movement on 07/26/18 and today after a hard BM. Patient reports that she usually has constipation but drinks prune juice which helps. She reports however that she stopped drinking prune juice in the last few weeks after she had a left knee replacement. She also reports having episodes of non bloody diarrhea and lower abd cramping on 07/25/18 after eating pork chops which have since resolved. Denies bloody or dark/tarry stools. Patient denies headache, lightheadedness. Denies fever, chills. Denies chest pain, shortness of breath. Denies nausea, vomiting, abdominal pain. Denies urinary symptoms. Allergies: NKDA PCP: Susi Donaldson - Physicial Exam PE: 07/27/18 23:07 GENERAL: Awake, alert, and fully oriented, in no acute distress. Well appearing. EYES: PERRLA, EOMI, sclera anicteric, conjunctiva clear ENT: Nares patent, oropharynx clear without exudates. Moist mucosa NECK: Normal ROM, supple, no lymphadenopathy, JVD, or masses LUNGS: Breath sounds equal, clear to auscultation bilaterally. No wheezes, and no crackles HEART: Regular rate and rhythm, normal S1 and S2, no murmurs, rubs or gallops ABDOMEN: Soft, nontender, normoactive bowel sounds. No guarding, no rebound. No masses RECTAL: per Dr. Espana's note EXTREMITIES: Normal range of motion, no edema. No cords, erythema, or tenderness NEUROLOGICAL: Normal speech, cranial nerves intact, equal strength and sensation, normal gait. SKIN: Warm, Dry, normal turgor, no rashes or lesions noted. - Medical Decision Making 07/27/18 23:10 58yo F hx constipation presents to the ED with 2 episodes of BRB streaks on toilet paper in the setting of passing hard stools. Rectal with scant BRB in vault, no external hemorrhoids with brown stool. Likely internal hemorrhoids 2/ 2 constipation. Pt well appearing, no abd pain, no dark tarry stools to suggest UGIB. CBC x2 with stable hgb. Vitals wnl. Pt is due to for colonscopy as last was 10yrs ago, she states she will f/u with Dr. Cid. pt clinically stable for DC home I discussed the physical exam findings, ancillary test results and final diagnoses with the patient. I answered all of the patient's questions. The patient was satisfied with the care received and felt comfortable with the discharge plan and treatment plan. The patient will call their primary care physician within 24 hours to arrange follow-up and will return to the Emergency Department with any new, persistent or worsening symptoms.
== END 2018-07-27 22:50 | disposition home or self-care (01) ==
LOC: JER 16:11
DX: K59.03 Drug induced constipation (principal); T40.2X5A Adverse effect of other opioids, initial encounter; Y92.038 Other place in apartment as the place of occurrence of the external cause; F41.9 Anxiety disorder, unspecified; F32.9 Major depressive disorder, single episode, unspecified; J45.909 Unspecified asthma, uncomplicated; E78.00 Pure hypercholesterolemia, unspecified; Z87.09 Personal history of other diseases of the respiratory system; Z86.018 Personal history of other benign neoplasm
CPT/HCPCS: 36415; 80053; 82272; 85027; 99282-25

== ENCOUNTER 2018-08-22 16:38 | Emergency (ER) | payer OTHER ==
[2018-08-22 16:47] VITALS: BP 101/68; PULSE 85; TEMP 97.6; BMI 29.9
[2018-08-22] MEDS ORDERED: IBUPROFEN 400 MG TABLET (FP) PO ONE ×2 (17:01→17:04)
--- NOTE | 2018-08-22 18:05 | PDOC ---
Documentation entered by Iwona Fagan SCRIBE, acting as scribe for Romie Palumbo MD. Romie Palumbo MD: This documentation has been prepared by the Gracia wilhelm Nirvannie, SCRIBE, under my direction and personally reviewed by me in its entirety. I confirm that the documentation accurately reflects all work, treatment, procedures, and medical decision making performed by me. History of Present Illness - General Chief Complaint: Injury Stated Complaint: FALL, LEFT KNEE PAIN Time Seen by Provider: 08/22/18 16:43 History Source: Patient Exam Limitations: No Limitations - History of Present Illness Initial Comments: 08/22/18 17:25 The patient is a 38 year old female, with a significant past medical history of benign meningioma (removed 2004), anxiety, depression, constipation, and arthritis, who presents to the emergency department s/p fall with left knee pain and right hand pain. As per patient, she was on her way back into her apartment when she opened the door and fell with her hands out and onto her left knee. Patient notes the events of the accident happened fairly fast thus, she cannot remember exact details of the accident but notes she remembers hitting the ground with her hands/knee. She describes her left knee pain as a 4/ 10 with associated bruising and swelling and her right hand pain a 7/10 worsening with active motion. She notes calling her orthopedic surgeon Dr. Paige to inform him of the accident and swelling at which time she was advised to report to the ED for further evaluation. She also complains of mild pain to her R lateral hand. She denies any changes in strength or sensation. She is unaware if she hit her head but denies any neck pain, back pain. She denies recent fevers, chills, headache or dizziness. She denies recent nausea, vomit, diarrhea or constipation. She denies recent dysuria, frequency, urgency or hematuria. She denies recent chest pain or shortness of breath. Allergies: NKDA Past surgical history: Left partial knee replacement 6 weeks ago. Social history: Nonsmoker. Denies EtOH use and recreational drug use. Primary Care Physician: Dr. Susi Donaldson Orthopedic Surgeon: Dr. Paige Past History - Past Medical History Allergies/Adverse Reactions: Allergies Allergy/AdvReac Type Severity Reaction Status Date / Time No Known Drug Allergies Allergy Verified 08/22/18 16:39 Home Medications: Ambulatory Orders Clonazepam [Klonopin] 1 mg PO BID 09/30/12 Doxepin HCl [Sinequan -] 25 mg PO HS 01/03/16 Anemia: No Asthma: Yes Cancer: No Cardiac Disorders: No CVA: No COPD: No CHF: No Dementia: No Diabetes: No GI Disorders: Yes (gastritis) Disorders: No HTN: No Hypercholesterolemia: Yes Liver Disease: No Psychiatric Problems: Yes (ANXIETY DEPRESSION) Seizures: No Thyroid Disease: Yes (pituitary tumor) - Surgical History Abdominal Surgery: No Appendectomy: No Cardiac Surgery: No Cholecystectomy: No Lung Surgery: No Neurologic Surgery: Yes (Pituitary benign brain tumor surgery 2004) Orthopedic Surgery: No (left knee ligament sx) - Immunization History Immunization Up to Date: Yes - Suicide/Smoking/Psychosocial Hx Smoking Status: No Smoking History: Never smoked Have you smoked in the past 12 months: No Number of Cigarettes Smoked Daily: 0 If you are a former smoker, when did you quit?: 2004 Information on smoking cessation initiated: No Hx Alcohol Use: No Drug/Substance Use Hx: No Substance Use Type: None Hx Substance Use Treatment: No Review of Systems - Review of Systems Able to Perform ROS?: Yes Comments:: 08/22/18 17:25 CONSTITUTIONAL: No reported: Fever, Chills, Diaphoresis, Generalized Weakness, Malaise, Loss of Appetite HEENT: No reported: Rhinorrhea, Nasal Congestion, Throat Pain, Throat Swelling, Difficulty Swallowing, Mouth Swelling, Ear Pain, Eye Pain, Visual Changes CARDIOVASCULAR: No reported: Chest Pain, Syncope, Palpitations, Irregular Heart Rate, Lightheadedness, Peripheral Edema RESPIRATORY: No reported: Cough, Shortness of Breath, SOB with Exertion, Orthopnea, Wheezing , Stridor, Hemoptysis GASTROINTESTINAL: No reported: Abdominal pain, Abdominal Distension, Nausea, Vomiting, Diarrhea, Constipation, Melena, Hematochezia GENITOURINARY: No reported: Dysuria, Frequency, Urgency, Hesitancy, Flank Pain, Genital Pain MUSCULOSKELETAL: Present: Left knee pain and swelling. Right hand pain. No reported: Back pain, Neck Pain SKIN: No reported: Rash, Itching, Pallor HEMEATOLOGIC/IMMUNOLOGIC: No reported: Easy Bleeding, Easy Bruising, Lymphadenopathy, Frequent infections ENDOCRINE: No reported: Unexplained Weight Gain, Unexplained Weight Loss, Heat Intolerance , Cold Intolerance NEUROLOGIC: No reported: Headache, Focal Weakness, Paresthesias, Vertigo, Lightheadedness, Unsteady Gait, Seizure, Mental Status Changes, Incontinence PSYCHIATRIC: No reported: Anxiety, Depression Hematologic/Lymphatic: Yes: Other *Physical Exam - Vital Signs Last Vital Signs Temp Pulse Resp BP Pulse Ox 97.6 F 85 20 101/68 97 08/22/18 16:38 08/22/18 16:38 08/22/18 16:38 08/22/18 16:38 08/22/18 16:38 - Physical Exam Comments: 08/22/18 17:12 GENERAL: The patient is awake, alert, and fully oriented, Nontoxic - in no acute distress. HEAD: Normocephalic, atraumatic. EYES: extraocular movements intact, sclera anicteric, conjunctiva clear. ENT: Normal voice, Moist mucous membranes. NECK: Normal range of motion, supple BACKK: No focal midline bony ttp on cervical, thoracic/lumbar spine, no ttp paraspially LUNGS: Breath sounds equal, clear to auscultation bilaterally. No wheezes, no rhonchi, no rales. HEART: Regular rate and rhythm, normal S1 and S2 without murmur, rub or gallop. ABDOMEN: Soft, nontender, normoactive bowel sounds. No guarding, no rebound. . No CVA tenderness EXTREMITIES: Mild ttp on anterior L knee with mild edema/fluctuance. No active bleeding, incision c/di over L knee. able to flex/extend L knee without significant discomfort. No calf tendernes, no other bony tenderness on b/l LE beside knee. Normal ROM of shoulders, elbow, wrist, very mild ttp mcp R 3-4-5 digit without obvious deformity NEUROLOGICAL: No facial assymetry, Normal speech, PSYCH: Normal mood, normal affect. SKIN: Warm, Dry, normal turgor, ED Treatment Course - RADIOLOGY Radiology Studies Ordered: Category Date Time Status HAND- RIGHT [RAD] Stat Radiology 08/22/18 17:01 Ordered KNEE 3 POS-LEFT [RAD] Stat Radiology 08/22/18 16:49 Ordered Medical Decision Making - Medical Decision Making 08/22/18 17:02 58y F about 6 weeks s/p knee surgery presents sp fall after walking into her house, stats she doesnt remember the exact events as the fall happened so quickly but does recall hitting her knee onthe ground and catching herself with her R hand. Pt now complaining of pain to the L knee and R hand. denies any headache, neck pain, shoulder pain, cp, sob, palpitations, abd pain, n/v. xray to ro fx motrin for pain will erassess 08/22/18 18:04 xrays neg for fx on my interpretation will dc the pt to fu with dr. paige tylenol or motrin for pain *DC/Admit/Observation/Transfer Diagnosis at time of Disposition: Hand pain, right Knee pain, left Qualifiers: Chronicity: acute Qualified Code(s): M25.562 - Pain in left knee - Discharge Dispostion Disposition: HOME Condition at time of disposition: Improved Decision to Admit order: No - Referrals Referrals: Shahab Paige MD [Staff Physician] - - Patient Instructions Printed Discharge Instructions: DI for Knee Pain Additional Instructions: Follow up with dr. Paige. There does not appear to be any fractures on xrays. Take tylenol or motrin as needed for pain. Print Language: FRISIAN - Post Discharge Activity
== END 2018-08-22 18:24 | disposition home or self-care (01) ==
LOC: FER 16:38
DX: M79.641 Pain in right hand (principal); M25.562 Pain in left knee; W18.39XA Other fall on same level, initial encounter; Y93.01 Activity, walking, marching and hiking; Y92.038 Other place in apartment as the place of occurrence of the external cause; Y99.8 Other external cause status; Z87.09 Personal history of other diseases of the respiratory system; Z87.19 Personal history of other diseases of the digestive system; Z86.011 Personal history of benign neoplasm of the brain; Z86.59 Personal history of other mental and behavioral disorders
CPT/HCPCS: 73130-TC-RT-FY; 73562-TC-LT-FY; 99281-25

== ENCOUNTER 2018-10-08 09:34 | Day surgery (SDC) | payer OTHER | END 2018-10-08 12:33 | disposition home or self-care (01) | LOC: JASU-ENDO 09:34 ==

== ENCOUNTER 2020-05-16 13:35 | Emergency (ER) | payer OTHER ==
[2020-05-16 13:41] VITALS: BP 133/62; PULSE 81; TEMP 98; BMI 27.8
== END 2020-05-16 16:06 | disposition home or self-care (01) ==
LOC: JERFT 13:35
DX: M25.562 Pain in left knee (principal); M25.531 Pain in right wrist; M54.5 Low back pain; W19.XXXA Unspecified fall, initial encounter
CPT/HCPCS: 72100-TC-FY; 73110-TC-LT-FY; 73110-TC-RT-FY; 73130-TC-LT-FY; 73130-TC-RT-FY; 73562-TC-LT-FY; 99284-25

== ENCOUNTER 2020-06-11 14:23 | Inpatient (IN) | payer OTHER ==
[2020-06-11] MEDS ORDERED: FAMOTIDINE 20 MG/50 ML IVPB 20 MG/50 ML MG IVPB ONE ×2 (15:40→16:22)
[2020-06-11] MEDS ORDERED: MAG HYDROX/AL HYDROX/SIMETH -MYLANTA- ORAL SUSPENSION PO ONE (15:40)
[2020-06-11] MEDS ORDERED: MAG HYDROX/AL HYDROX/SIMETH 30 ML UNIT-DOSE CUP ONE (16:22)
[2020-06-11 16:41] LABS: BASO % 0.3 % (0-2.0); EOS % 0.2 % (0-4.5); HEMATOCRIT 38.5 % (32.4-45.2); HEMOGLOBIN 12.5 GM/dL (10.7-15.3); LYMPH % 12.6 % (8-40); MCHC 32.5 g/dl (32.0-36.0); MEAN CELL VOLUME 83.2 fl (80-96); MEAN PLT VOLUME 10.2 fl (7.5-11.1); MONO % 8.7 % (3.8-10.2); NEUT % 78.2 % (42.8-82.8); PLATELET COUNT 213 K/MM3 (134-434); RBC 4.63 M/mm3 (3.60-5.2); RDW 14.2 % (11.6-15.6); WHITE BLOOD COUNT 11.5 K/mm3 (4.0-10.0)
[2020-06-11] MEDS ORDERED: ACETAMINOPHEN 325 MG TABLET (FP) PO ONE (16:50)
[2020-06-11] MEDS ORDERED: SUCRALFATE 1 GM/10 ML UNIT DOSE CUPS PO ONE (16:53)
[2020-06-11] MEDS ORDERED: ACETAMINOPHEN 325 MG TABLET (FP) ONE (16:54)
[2020-06-11 17:03] LABS: CHLORIDE 102 mmol/L (98-107); POTASSIUM 4.1 mmol/L (3.5-5.1); SODIUM 137 mmol/L (136-145)
[2020-06-11 17:05] LABS: ALBUMIN 3.6 g/dl (3.4-5.0); CALCIUM 8.9 mg/dL (8.5-10.1); LIPASE 324 U/L (73-393)
[2020-06-11 17:06] LABS: ANION GAP 9 MMOL/L (8-16); CO2 26 mmol/L (21-32); GLUCOSE,RANDOM 109 mg/dL (74-106)
[2020-06-11 17:08] LABS: SGOT/AST 24 U/L (15-37); SGPT/ALT 38 U/L (13-61)
[2020-06-11 17:09] LABS: CREATININE 0.6 mg/dL (0.55-1.3)
[2020-06-11 17:10] LABS: BILIRUBIN,TOTAL 0.6 mg/dL (0.2-1); TOT PROT 7.4 g/dl (6.4-8.2)
[2020-06-11 17:11] LABS: ALK PHOS 108 U/L (45-117)
[2020-06-11] MEDS ORDERED: morphine CARPU-JECT 4 MG/1 ML DISP.SYRIN IVPUSH ONE (20:14)
[2020-06-11 21:20] LABS: URINE APPEARANCE CLEAR; URINE BILIRUBIN NEGATIVE (NEGATIVE); URINE COLOR YELLOW; URINE GLUCOSE (UA) NEGATIVE (NEGATIVE); URINE KETONE NEGATIVE (NEGATIVE); URINE LEUK ESTERASE NEGATIVE (NEGATIVE); URINE NITRITE NEGATIVE (NEGATIVE); URINE PROTEIN TRACE (NEGATIVE); URINE UROBILINOGEN 0.2 mg/dL (0.2-1.0)
[2020-06-12] MEDS ORDERED: ACETAMINOPHEN 1000 MG/100 ML VIAL (NON FORMULARY) IVPB ONE (04:31)
[2020-06-12] MEDS ORDERED: ACETAMINOPHEN 325 MG TABLET (FP) PO PRN (05:25)
[2020-06-12] MEDS ORDERED: ALBUTEROL SO4 HFA INHALER IH PRN (05:30)
[2020-06-12 06:22] VITALS: BMI 27.7
[2020-06-12] MEDS ORDERED: ASPIRIN COATED 81 MG TABLET.EC PO SCH (10:00)
[2020-06-12] MEDS ORDERED: PATIENT'S OWN MEDICATION (NON-FORMULARY) (Omeprazole 20 MG Capsule.Dr) PO SCH (10:00)
[2020-06-12] MEDS: PANTOPRAZOLE SODIUM 40 MG VIAL IVPUSH SCH (10:10)
[2020-06-12 10:14] LABS: BASO % 0.3 % (0-2.0); EOS % 0.9 % (0-4.5); HEMATOCRIT 36.3 % (32.4-45.2); HEMOGLOBIN 11.8 GM/dL (10.7-15.3); LYMPH % 17.1 % (8-40); MCH 27.3 pg (25.7-33.7); MCHC 32.5 g/dl (32.0-36.0); MEAN CELL VOLUME 84.1 fl (80-96); MEAN PLT VOLUME 10.5 fl (7.5-11.1); MONO % 9.9 % (3.8-10.2); NEUT % 71.8 % (42.8-82.8); PLATELET COUNT 196 K/MM3 (134-434); RBC 4.32 M/mm3 (3.60-5.2); RDW 13.9 % (11.6-15.6); WHITE BLOOD COUNT 11.4 K/mm3 (4.0-10.0)
[2020-06-12 10:21] LABS: INR 1.2 (0.83-1.09); PROTHROMBIN TIME (PATIENT) 14.5 SEC (9.7-13.0)
[2020-06-12 10:23] LABS: ACTIVATED PTT 31.7 SECONDS (25.2-36.5)
[2020-06-12] MEDS: ENOXAPARIN NA (PORCINE) 40 MG/0.4 ML DISP.SYRIN SQ SCH (10:28)
[2020-06-12] MEDS ORDERED: LACTATED RINGERS SOLUTION 1,000 ML/1,000 ML INFUS.BAG IV SCH (10:30)
[2020-06-12 10:37] LABS: POTASSIUM 3.9 mmol/L (3.5-5.1)
[2020-06-12] MEDS: CYANOCOBALAMIN 1,000 MCG TABLET (FP) PO SCH (10:37)
[2020-06-12] MEDS: PARoxetine HCL 10 MG TABLET PO SCH (10:39)
[2020-06-12 10:40] LABS: ALBUMIN 3.6 g/dl (3.4-5.0); BLOOD UREA NITROGEN 10.9 mg/dL (7-18); CALCIUM 8.8 mg/dL (8.5-10.1); MAGNESIUM 2.2 mg/dL (1.8-2.4)
[2020-06-12 10:43] LABS: CREATININE 0.6 mg/dL (0.55-1.3); PHOSPHOROUS 2.7 mg/dL (2.5-4.9)
[2020-06-12] MEDS: clonazePAM 0.5 MG TABLET PO SCH ×2 (10:43→22:15)
[2020-06-12 10:45] LABS: BILIRUBIN,TOTAL 1.2 mg/dL (0.2-1)
[2020-06-12] MEDS: LACTATED RINGERS SOLUTION 1,000 ML/1,000 ML INFUS.BAG IV SCH ×2 (13:49→22:39)
[2020-06-12] MEDS: FAMOTIDINE 20 MG TABLET PO SCH ×2 (14:07→22:15)
[2020-06-12] MEDS ORDERED: TETRAHYDROZOLINE HCL EYE DROPS OU PRN (18:03)
[2020-06-12] MEDS ORDERED: PT OWN MED DRAWER 7, Y5N ONE (22:02)
[2020-06-12] MEDS: DOXEPIN HCL 25 MG CAPSULE PO SCH (22:15)
[2020-06-12] MEDS: MORPHINE SULFATE 2 MG/ML VIAL IVPUSH PRN (22:37)
[2020-06-13] MEDS: ENOXAPARIN NA (PORCINE) 40 MG/0.4 ML DISP.SYRIN SQ SCH (10:01)
[2020-06-13] MEDS: PARoxetine HCL 10 MG TABLET PO SCH (10:02)
[2020-06-13] MEDS: FAMOTIDINE 20 MG TABLET PO SCH (10:02)
[2020-06-13] MEDS: CYANOCOBALAMIN 1,000 MCG TABLET (FP) PO SCH (10:02)
[2020-06-13] MEDS: clonazePAM 0.5 MG TABLET PO SCH ×2 (10:21→21:26)
[2020-06-13 12:15] LABS: BASO % 0.6 % (0-2.0); EOS % 2.4 % (0-4.5); HEMATOCRIT 36.4 % (32.4-45.2); HEMOGLOBIN 11.9 GM/dL (10.7-15.3); LYMPH % 21.4 % (8-40); MCH 27.5 pg (25.7-33.7); MCHC 32.7 g/dl (32.0-36.0); MEAN PLT VOLUME 10.4 fl (7.5-11.1); MONO % 8.5 % (3.8-10.2); NEUT % 67.1 % (42.8-82.8); PLATELET COUNT 217 K/MM3 (134-434); RBC 4.34 M/mm3 (3.60-5.2); RDW 13.7 % (11.6-15.6); WHITE BLOOD COUNT 8.9 K/mm3 (4.0-10.0)
[2020-06-13 12:32] LABS: POTASSIUM 3.8 mmol/L (3.5-5.1)
[2020-06-13 12:38] LABS: ALBUMIN 3.3 g/dl (3.4-5.0); CALCIUM 8.5 mg/dL (8.5-10.1)
[2020-06-13 12:41] LABS: CREATININE 0.5 mg/dL (0.55-1.3)
[2020-06-13 12:42] LABS: BILIRUBIN,TOTAL 0.6 mg/dL (0.2-1); TOT PROT 6.9 g/dl (6.4-8.2)
[2020-06-13] MEDS: LACTATED RINGERS SOLUTION 1,000 ML/1,000 ML INFUS.BAG IV SCH (13:18)
[2020-06-13] MEDS ORDERED: PANTOPRAZOLE 40 MG TABLET PO SCH ×2 (14:30→17:30)
[2020-06-13] MEDS: PANTOPRAZOLE SODIUM 40 MG VIAL IVPUSH SCH (15:40)
[2020-06-13] MEDS ORDERED: clonazePAM 0.5 MG TABLET PO ONE (17:27)
[2020-06-13] MEDS ORDERED: PT OWN MED DRAWER 7, Y5N ONE (20:58)
[2020-06-13] MEDS: DOXEPIN HCL 25 MG CAPSULE PO SCH (21:26)
[2020-06-14] MEDS ORDERED: PANTOPRAZOLE 40 MG TABLET PO SCH (10:00)
[2020-06-14] MEDS: ENOXAPARIN NA (PORCINE) 40 MG/0.4 ML DISP.SYRIN SQ SCH (10:25)
[2020-06-14] MEDS: CYANOCOBALAMIN 1,000 MCG TABLET (FP) PO SCH (10:25)
[2020-06-14] MEDS: PARoxetine HCL 10 MG TABLET PO SCH (10:26)
[2020-06-14] MEDS: MORPHINE SULFATE 2 MG/ML VIAL IVPUSH PRN ×2 (10:29→15:42)
[2020-06-14 10:47] LABS: AMYLASE 300 U/L (25-115)
[2020-06-14 11:41] LABS: LIPASE 2245 U/L (73-393)
[2020-06-14] MEDS: clonazePAM 0.5 MG TABLET PO SCH ×2 (13:04→21:42)
[2020-06-14] MEDS ORDERED: FAMOTIDINE 20 MG TABLET PO PRN (14:19)
[2020-06-14] MEDS: LACTATED RINGERS SOLUTION 1,000 ML/1,000 ML INFUS.BAG IV SCH (15:43)
[2020-06-14] MEDS ORDERED: PT OWN MED DRAWER 7, Y5N ONE (21:01)
[2020-06-14] MEDS: DOXEPIN HCL 25 MG CAPSULE PO SCH (21:42)
[2020-06-15] MEDS: LACTATED RINGERS SOLUTION 1,000 ML/1,000 ML INFUS.BAG IV SCH ×3 (05:05→22:58)
[2020-06-15] MEDS: PANTOPRAZOLE 20 MG TABLET PO SCH (09:13)
[2020-06-15] MEDS: CYANOCOBALAMIN 1,000 MCG TABLET (FP) PO SCH (09:13)
[2020-06-15] MEDS: ENOXAPARIN NA (PORCINE) 40 MG/0.4 ML DISP.SYRIN SQ SCH (09:13)
[2020-06-15] MEDS: PARoxetine HCL 10 MG TABLET PO SCH (09:13)
[2020-06-15] MEDS: clonazePAM 0.5 MG TABLET PO SCH ×2 (09:18→21:08)
[2020-06-15] MEDS: MORPHINE SULFATE 2 MG/ML VIAL IVPUSH PRN (10:16)
[2020-06-15] MEDS ORDERED: diphenhydrAMINE HCL 25 MG CAPSULE (FP) PO ONE (19:14)
[2020-06-15] MEDS ORDERED: PT OWN MED DRAWER 7, Y5N ONE (20:50)
[2020-06-15] MEDS: DOXEPIN HCL 25 MG CAPSULE PO SCH (21:08)
[2020-06-16] MEDS: LACTATED RINGERS SOLUTION 1,000 ML/1,000 ML INFUS.BAG IV SCH (04:51)
[2020-06-16 10:02] LABS: BASO % 0.9 % (0-2.0); EOS % 5.2 % (0-4.5); HEMATOCRIT 33.2 % (32.4-45.2); HEMOGLOBIN 10.9 GM/dL (10.7-15.3); LYMPH % 31.5 % (8-40); MCH 27.4 pg (25.7-33.7); MCHC 32.7 g/dl (32.0-36.0); MEAN CELL VOLUME 83.6 fl (80-96); MEAN PLT VOLUME 10.2 fl (7.5-11.1); MONO % 9.4 % (3.8-10.2); PLATELET COUNT 246 K/MM3 (134-434); RBC 3.97 M/mm3 (3.60-5.2); RDW 13.8 % (11.6-15.6); WHITE BLOOD COUNT 6.3 K/mm3 (4.0-10.0)
[2020-06-16] MEDS: PARoxetine HCL 10 MG TABLET PO SCH (10:08)
[2020-06-16] MEDS: PANTOPRAZOLE 20 MG TABLET PO SCH (10:08)
[2020-06-16] MEDS: CYANOCOBALAMIN 1,000 MCG TABLET (FP) PO SCH (10:08)
[2020-06-16] MEDS: ENOXAPARIN NA (PORCINE) 40 MG/0.4 ML DISP.SYRIN SQ SCH (10:09)
[2020-06-16] MEDS: clonazePAM 0.5 MG TABLET PO SCH (10:09)
[2020-06-16 10:11] LABS: POTASSIUM 3.9 mmol/L (3.5-5.1)
[2020-06-16 10:50] LABS: CREATININE 0.5 mg/dL (0.55-1.3)
[2020-06-16 10:51] LABS: ALBUMIN 2.7 g/dl (3.4-5.0)
[2020-06-16 10:52] LABS: TOT PROT 6.2 g/dl (6.4-8.2)
[2020-06-16 10:56] LABS: BILIRUBIN,TOTAL 0.5 mg/dL (0.2-1)
[2020-06-16 19:01] VITALS: BP 115/64; PULSE 82; TEMP 97.5
== END 2020-06-16 18:15 | disposition home or self-care (01) | DRG 440 ==
LOC: JER 14:23 → JERBED 20:23 → J5S 06-12 03:55
PROVIDERS: ADMIT Internal Medicine; ATTEND Internal Medicine
DX: K85.90 Acute pancreatitis without necrosis or infection, unspecified (principal); L27.0 Generalized skin eruption due to drugs and medicaments taken internally; T42.8X5A Adverse effect of antiparkinsonism drugs and other central muscle-tone depressants, initial encounter; K21.9 Gastro-esophageal reflux disease without esophagitis; M19.90 Unspecified osteoarthritis, unspecified site; F41.9 Anxiety disorder, unspecified; F32.9 Major depressive disorder, single episode, unspecified; Z86.011 Personal history of benign neoplasm of the brain; Z87.891 Personal history of nicotine dependence
CPT/HCPCS: 36415; 74177-TC; 74183-TC; 76705-TC; 80053; 80061; 81003; 82150; 83690; 83721; 83735; 84100; 84484; 85025; 85610; 85730; 87086; 93005; 93010; 97116-GP; 97161-GP; 99285-25; C9803; J0131; Q9967; U0003

== ENCOUNTER 2020-12-22 19:34 | Emergency (ER) | payer OTHER ==
[2020-12-22 19:49] VITALS: BP 150/75; PULSE 82; BMI 28.7
[2020-12-22] MEDS ORDERED: KETOROLAC TROMETHAMINE 60 MG/2 ML VIAL IM ONE (20:21)
[2020-12-22] MEDS ORDERED: ACETAMINOPHEN 325 MG TABLET (FP) PO ONE (20:21)
[2020-12-22] MEDS ORDERED: LIDOCAINE 5% TOPICAL PATCH TP ONE (20:21)
[2020-12-22] MEDS ORDERED: DEXAMETHASONE LIQUID 0.5 MG/5 ML PO ONE (20:21)
[2020-12-22] MEDS ORDERED: LIDOCAINE 5% TOPICAL PATCH ONE (20:41)
[2020-12-22] MEDS ORDERED: KETOROLAC TROMETHAMINE 30 MG/1 ML VIAL ONE (20:42)
[2020-12-22] MEDS ORDERED: ACETAMINOPHEN 500 MG TABLET (FP) ONE (20:42)
[2020-12-22] MEDS ORDERED: DEXAMETHASONE SOD PHOSPHATE 10 MG/1 ML VIAL ONE (20:42)
[2020-12-23] MEDS ORDERED: LIDOCAINE PATCH REMOVAL MC ONE (08:00)
== END 2020-12-22 21:45 | disposition home or self-care (01) ==
LOC: JERFT 19:34 → JER 19:34 → JERFT 21:45
PROC: 3E023GC Introduction of Other Therapeutic Substance into Muscle, Percutaneous Approach (ICD-10-PCS; principal; 2020-12-22)
DX: M54.12 Radiculopathy, cervical region (principal)
CPT/HCPCS: 99284-25

== ENCOUNTER 2021-04-03 13:28 | Emergency (ER) | payer OTHER ==
[2021-04-03 13:36] VITALS: TEMP 98; BMI 28.1
[2021-04-03] MEDS ORDERED: ACETAMINOPHEN 1000 MG/100 ML VIAL IVPB ONE (15:18)
[2021-04-03] MEDS ORDERED: ACETAMINOPHEN INJECTION 100 ML IVPB ONE (15:30)
[2021-04-03 15:45] LABS: BASO % 0.5 % (0-2.0); EOS % 2.9 % (0-4.5); HEMATOCRIT 40.9 % (32.4-45.2); HEMOGLOBIN 13.4 GM/dL (10.7-15.3); LYMPH % 23.8 % (8-40); MCHC 32.8 g/dl (32.0-36.0); MEAN CELL VOLUME 82.4 fl (80-96); MONO % 5.6 % (3.8-10.2); NEUT % 67.2 % (42.8-82.8); PLATELET COUNT 317 10^3/uL (134-434); RBC 4.97 M/mm3 (3.60-5.2); RDW 13.2 % (11.6-15.6); WHITE BLOOD COUNT 8.2 K/mm3 (4.0-10.0)
[2021-04-03 15:51] LABS: CHLORIDE 105 mmol/L (98-107); SODIUM 140 mmol/L (136-145)
[2021-04-03 15:53] LABS: ANION GAP 8 MMOL/L (8-16); CO2 27 mmol/L (21-32)
[2021-04-03 15:54] LABS: ALBUMIN 3.6 g/dl (3.4-5.0); BLOOD UREA NITROGEN 15.1 mg/dL (7-18); GLUCOSE,RANDOM 92 mg/dL (74-106)
[2021-04-03 15:57] LABS: CREATININE 0.7 mg/dL (0.55-1.3); SGOT/AST 27 U/L (15-37); SGPT/ALT 37 U/L (13-61)
[2021-04-03 15:58] LABS: TOT PROT 7.9 g/dl (6.4-8.2)
[2021-04-03 15:59] LABS: ALK PHOS 145 U/L (45-117); BILIRUBIN,TOTAL 0.6 mg/dL (0.2-1)
[2021-04-03 16:37] LABS: URINE APPEARANCE CLEAR; URINE BILIRUBIN NEGATIVE (NEGATIVE); URINE COLOR YELLOW; URINE GLUCOSE (UA) NEGATIVE (NEGATIVE); URINE KETONE NEGATIVE (NEGATIVE); URINE LEUK ESTERASE NEGATIVE (NEGATIVE); URINE NITRITE NEGATIVE (NEGATIVE); URINE PROTEIN NEGATIVE (NEGATIVE); URINE UROBILINOGEN 0.2 mg/dL (0.2-1.0)
[2021-04-03 20:10] VITALS: BP 140/79; PULSE 87
== END 2021-04-03 21:52 | disposition home or self-care (01) ==
LOC: JER 13:28
PROC: 3E033NZ Introduction of Analgesics, Hypnotics, Sedatives into Peripheral Vein, Percutaneous Approach (ICD-10-PCS; principal; 2021-04-03)
DX: U07.1 COVID-19 (principal); J12.82 Pneumonia due to coronavirus disease 2019; M25.50 Pain in unspecified joint; R07.9 Chest pain, unspecified
CPT/HCPCS: 36415; 71275-TC; 80053; 81003; 82550; 84484; 85025; 93005; 93010; 93970-TC; 99284-25; C9803; J0131; Q9967; U0003; U0005

== ENCOUNTER 2021-05-07 15:30 | Emergency (ER) | payer OTHER ==
[2021-05-07 15:44] VITALS: BP 139/78; PULSE 90; TEMP 97.8; BMI 28.3
== END 2021-05-07 16:45 | disposition home or self-care (01) ==
LOC: FER 15:30
DX: L02.01 Cutaneous abscess of face (principal)
CPT/HCPCS: 99281-25

== ENCOUNTER 2021-05-09 19:52 | Emergency (ER) | payer OTHER ==
[2021-05-09 20:26] VITALS: BP 140/82; PULSE 82; TEMP 99; BMI 28.3
== END 2021-05-09 20:26 | disposition home or self-care (01) ==
LOC: FER 19:52
DX: Z48.00 Encounter for change or removal of nonsurgical wound dressing (principal)
CPT/HCPCS: 99281-25

== ENCOUNTER 2022-02-03 13:09 | Emergency (ER) | payer OTHER ==
[2022-02-03 13:35] VITALS: BP 123/68; PULSE 91; RESP 18; TEMP 97.6; BMI 28.3
[2022-02-03] MEDS ORDERED: LACTATED RINGERS SOLUTION 1000 ML INFUS.BAG IV ONE (14:36)
[2022-02-03 15:49] LABS: BASO % 0.7 % (0-2.0); EOS % 3.3 % (0-4.5); HEMATOCRIT 39.5 % (32.4-45.2); HEMOGLOBIN 12.5 GM/dL (10.7-15.3); LYMPH % 41.7 % (8-40); MCH 26.6 pg (25.7-33.7); MCHC 31.7 g/dl (32.0-36.0); MEAN CELL VOLUME 83.9 fl (80-96); MEAN PLT VOLUME 9.2 fl (7.5-11.1); MONO % 7.7 % (3.8-10.2); NEUT % 46.6 % (42.8-82.8); PLATELET COUNT 218 10^3/uL (134-434); RBC 4.71 M/mm3 (3.60-5.2); RDW 13.8 % (11.6-15.6); WHITE BLOOD COUNT 8.2 K/mm3 (4.0-10.0)
[2022-02-03] MEDS ORDERED: FAMOTIDINE 20 MG/50 ML IVPB 20 MG/50 ML MG IVPB ONE ×2 (16:04→16:23)
[2022-02-03] MEDS ORDERED: METOCLOPRAMIDE HCL INJECTION 10 MG/2 ML VIAL IVPUSH ONE (16:04)
[2022-02-03] MEDS ORDERED: MAG HYDROX/AL HYDROX/SIMETH 30 ML UNIT-DOSE CUP PO ONE (16:04)
[2022-02-03 16:10] LABS: ALBUMIN 3.8 g/dl (3.4-5.0); CALCIUM 9.5 mg/dL (8.5-10.1)
[2022-02-03 16:12] LABS: CREATININE 0.7 mg/dL (0.55-1.3)
[2022-02-03 16:14] LABS: BILIRUBIN,TOTAL 0.3 mg/dL (0.2-1); TOT PROT 7.7 g/dl (6.4-8.2)
[2022-02-03] MEDS ORDERED: METOCLOPRAMIDE HCL INJECTION 10 MG/2 ML VIAL ONE (16:23)
[2022-02-03] MEDS ORDERED: MAG HYDROX/AL HYDROX/SIMETH 30 ML UNIT-DOSE CUP ONE (16:23)
[2022-02-03 18:45] LABS: PH,URINE 6.5 (5.0-8.0); URINE APPEARANCE CLEAR; URINE BILIRUBIN NEGATIVE (NEGATIVE); URINE COLOR YELLOW; URINE GLUCOSE (UA) NEGATIVE (NEGATIVE); URINE KETONE NEGATIVE (NEGATIVE); URINE LEUK ESTERASE NEGATIVE (NEGATIVE); URINE NITRITE NEGATIVE (NEGATIVE); URINE PROTEIN NEGATIVE (NEGATIVE); URINE UROBILINOGEN 0.2 mg/dL (0.2-1.0)
== END 2022-02-03 19:17 | disposition home or self-care (01) ==
LOC: JER 13:09
PROC: 3E033GC Introduction of Other Therapeutic Substance into Peripheral Vein, Percutaneous Approach (ICD-10-PCS; principal; 2022-02-03)
PROC: 3E033GC Introduction of Other Therapeutic Substance into Peripheral Vein, Percutaneous Approach (ICD-10-PCS; 2022-02-03)
DX: R53.1 Weakness (principal)
CPT/HCPCS: 0241U-QW; 36415; 71046-TC-FY; 76705-TC; 80053; 81003; 83690; 84484; 85025; 87086; 93005; 93010; 99285-25

== ENCOUNTER 2022-09-22 13:28 | Emergency (ER) | payer OTHER ==
[2022-09-22 13:42] VITALS: BP 107/52; PULSE 86; RESP 16; TEMP 97.8; BMI 28.3
== END 2022-09-22 17:28 | disposition home or self-care (01) ==
LOC: JERFT 13:28
DX: M25.531 Pain in right wrist (principal); R22.32 Localized swelling, mass and lump, left upper limb
CPT/HCPCS: 73110-TC-RT-FY; 73130-TC-RT-FY; 99283-25

== ENCOUNTER 2022-11-02 08:08 | Day surgery (SDC) | payer OTHER ==
[2022-10-31 11:09] VITALS: BMI 30.1
[2022-11-02] MEDS ORDERED: BUPIVACAINE HCL/PF 0.5% (5MG/ML) 10 ML VIAL ONE (09:22)
[2022-11-02] MEDS ORDERED: LIDOCAINE HCL 1%, 10 MG/ML (20ML VIAL) ONE (09:22)
[2022-11-02] MEDS ORDERED: PROPOFOL 20 ML ONE (09:59)
[2022-11-02 11:07] VITALS: RESP 16; TEMP 97.6
[2022-11-02 11:14] VITALS: BP 121/59; PULSE 82
== END 2022-11-02 11:10 | disposition home or self-care (01) ==
LOC: FASU 08:08
PROVIDERS: ATTEND Orthopaedic Surgery
PROC: 0LB50ZZ Excision of Right Lower Arm and Wrist Tendon, Open Approach (ICD-10-PCS; principal; 2022-11-02 09:47)
DX: M67.431 Ganglion, right wrist (principal)
CPT/HCPCS: 88304-TC

== ENCOUNTER 2023-05-08 11:10 | Emergency (ER) | payer OTHER ==
[2023-05-08 11:20] VITALS: BMI 30.1
[2023-05-08] MEDS ORDERED: ALBUTEROL SO4 2.5/IPRATROPIUM 0.5 INH SOL 3 ML VIAL.NEB. NEB ONE (12:10)
[2023-05-08] MEDS: ALBUTEROL SO4 2.5/IPRATROPIUM 0.5 INH SOL 3 ML VIAL.NEB. NEB SCH ×3 (12:14→12:53)
[2023-05-08] MEDS ORDERED: DEXAMETHASONE SOD PHOSPHATE 10 MG/1 ML VIAL IM ONE (12:19)
[2023-05-08] MEDS ORDERED: MAGNESIUM SULF 50% (8.12 MEQ/2 ML-1 GM VIAL) IVPB ONE (12:23)
[2023-05-08] MEDS ORDERED: DEXAMETHASONE SOD PHOSPHATE 10 MG/1 ML VIAL ONE (12:23)
[2023-05-08] MEDS ORDERED: MAGNESIUM SULFATE IN WATER 2 GM/50 ML IVPB IVPB ONE (12:26)
[2023-05-08] MEDS ORDERED: MAGNESIUM SULF 50% (8.12 MEQ/2 ML-1 GM VIAL) ONE (12:28)
[2023-05-08 13:03] LABS: BASO % 0.2 % (0-2.0); EOS % 4.5 % (0-4.5); HEMATOCRIT 42.9 % (32.4-45.2); HEMOGLOBIN 13.8 GM/dL (10.7-15.3); LYMPH % 48.8 % (8-40); MCH 27.5 pg (25.7-33.7); MCHC 32.2 g/dl (32.0-36.0); MEAN CELL VOLUME 85.3 fl (80-96); MEAN PLT VOLUME 9.4 fl (7.5-11.1); MONO % 8.6 % (3.8-10.2); NEUT % 37.9 % (42.8-82.8); PLATELET COUNT 184 10^3/uL (134-434); RBC 5.03 M/mm3 (3.60-5.2); RDW 13.8 % (11.6-15.6); WHITE BLOOD COUNT 7.5 K/mm3 (4.0-10.0)
[2023-05-08] MEDS ORDERED: ALBUTEROL SO4 0.083% IH SOL 2.5 MG/3 ML VIAL.NEB. NEB ONE ×2 (13:06→13:11)
[2023-05-08 13:24] LABS: CALCIUM 8.9 mg/dL (8.5-10.1)
[2023-05-08 13:25] LABS: ALBUMIN 3.7 g/dl (3.4-5.0)
[2023-05-08 13:28] LABS: CREATININE 0.6 mg/dL (0.55-1.3)
[2023-05-08 13:29] LABS: BILIRUBIN,TOTAL 0.4 mg/dL (0.2-1); TOT PROT 7.7 g/dl (6.4-8.2)
[2023-05-08 15:30] VITALS: BP 123/81; PULSE 81; RESP 18; TEMP 98.1
== END 2023-05-08 15:38 | disposition home or self-care (01) ==
LOC: JER 11:10
PROC: 3E033GC Introduction of Other Therapeutic Substance into Peripheral Vein, Percutaneous Approach (ICD-10-PCS; principal; 2023-05-08)
PROC: 3E023GC Introduction of Other Therapeutic Substance into Muscle, Percutaneous Approach (ICD-10-PCS; 2023-05-08)
PROC: 3E0F7GC Introduction of Other Therapeutic Substance into Respiratory Tract, Via Natural or Artificial Opening (ICD-10-PCS; 2023-05-08)
PROC: 3E0F7GC Introduction of Other Therapeutic Substance into Respiratory Tract, Via Natural or Artificial Opening (ICD-10-PCS; 2023-05-08)
DX: R06.2 Wheezing (principal); R50.9 Fever, unspecified; R05.9 Cough, unspecified; J45.901 Unspecified asthma with (acute) exacerbation; R09.89 Other specified symptoms and signs involving the circulatory and respiratory systems; Z20.822 Contact with and (suspected) exposure to COVID-19
CPT/HCPCS: 0241U-QW; 36415; 71045-TC-FY; 80053; 85025; 93005; 93010; 99285-25; J1100

== ENCOUNTER → 2023-06-13 | Day surgery (SDC) | payer OTHER ==
[2023-06-08 14:53] VITALS: BMI 30.1
[~2023-06-13] MED LIST: ACETAMINOPHEN 325 MG TABLET (FP) PO PRN; CYCLOPENTOLATE HCL 1% OPHTH SOLN 2 ML BOTTLE ONE; EPINEPHrine/PF 1 MG/1 ML (1:1,000) AMPULE ONE; KETOROLAC TROMETHAMINE 0.5% EYE DROP 1 DROP DROPS ONE; LIDOCAINE HCL/PF 1% SDV 5ML VIAL ONE; MIDAZOLAM HCL 2 MG/2 ML SINGLE DOSE VIAL ONE; OFLOXACIN 0.3% OPHTHALMIC SOLUTION 5 ML BOTTLE ONE; PHENYLEPHRINE 2.5% OPTHALMIC DROP 2ML BOTTLE ONE; POVIDONE-IODINE 5% OPHTHALMIC PREP 30 ML SOLUTION ONE; TETRACAINE 0.5% OPHTH SOLN 2 ML BOTTLE ONE; TROPICAMIDE 1% OPHTH SOLN 15 ML BOTTLE ONE
[2023-06-13] MEDS: TROPICAMIDE 1% OPHTH SOLN 15 ML BOTTLE OP SCH (08:39)
[2023-06-13] MEDS: KETOROLAC TROMETHAMINE 0.5% EYE DROP 1 DROP DROPS OP SCH (08:39)
[2023-06-13] MEDS: CYCLOPENTOLATE HCL 1% OPHTH SOLN 2 ML BOTTLE OP SCH (08:39)
[2023-06-13] MEDS: PHENYLEPHRINE 2.5% OPHTH SOLN 15 ML BOTTLE OP SCH (08:40)
[2023-06-13] MEDS: OFLOXACIN 0.3% OPHTHALMIC SOLUTION 5 ML BOTTLE OP SCH (08:40)
[2023-06-13] MEDS: TETRACAINE 0.5% OPHTH SOLN 2 ML BOTTLE OS ONE ×2 (09:21)
[2023-06-13] MEDS: LIDOCAINE HCL 1% PRESERVATIVE FREE - 30ML VIAL IO ONE ×2 (09:24)
[2023-06-13] MEDS: POVIDONE-IODINE 5% OPHTHALMIC PREP 30 ML SOLUTION OS ONE ×2 (09:24)
[2023-06-13] MEDS: CHONDROITIN SU A/HYALUR SOD 1 KIT IO ONE ×2 (09:36)
[2023-06-13] MEDS: EPINEPHrine/PF 1 MG/1 ML (1:1,000) AMPULE SQ ONE ×2 (09:36)
[2023-06-13] MEDS: BSS (NA/CA/MG/K) BALANCED SALT SOLUTION OPHTH SOLN 15 ML BOTTLE OS ONE ×2 (09:36)
[2023-06-13 11:24] VITALS: RESP 20
[2023-06-13 13:23] VITALS: BP 132/67; PULSE 77; TEMP 98
== END | disposition home or self-care (01) ==
LOC: JASU-SURG 04:27
PROVIDERS: ATTEND Ophthalmology
PROC: 08RK3JZ Replacement of Left Lens with Synthetic Substitute, Percutaneous Approach (ICD-10-PCS; principal; 2023-06-13 10:00)
DX: H26.9 Unspecified cataract (principal)
CPT/HCPCS: V2632

== ENCOUNTER 2023-07-03 11:11 | Emergency (ER) | payer OTHER ==
[2023-07-03 11:53] VITALS: BMI 30.1
[2023-07-03] MEDS ORDERED: ALBUTEROL SO4 2.5/IPRATROPIUM 0.5 INH SOL 3 ML VIAL.NEB. NEB ONE (12:19)
[2023-07-03] MEDS: ALBUTEROL SO4 2.5/IPRATROPIUM 0.5 INH SOL 3 ML VIAL.NEB. NEB ONE ×2 (12:32→13:06)
[2023-07-03] MEDS: ALBUTEROL SO4 2.5/IPRATROPIUM 0.5 INH SOL 3 ML VIAL.NEB. NEB SCH ×2 (12:32)
[2023-07-03 14:48] VITALS: BP 122/78; PULSE 72; RESP 19; TEMP 97.9
== END 2023-07-03 14:25 | disposition home or self-care (01) ==
LOC: JER 11:11
PROC: 3E0F7GC Introduction of Other Therapeutic Substance into Respiratory Tract, Via Natural or Artificial Opening (ICD-10-PCS; principal; 2023-07-03)
PROC: 3E0F7GC Introduction of Other Therapeutic Substance into Respiratory Tract, Via Natural or Artificial Opening (ICD-10-PCS; 2023-07-03)
DX: R06.02 Shortness of breath (principal); R05.9 Cough, unspecified; R07.9 Chest pain, unspecified; J45.901 Unspecified asthma with (acute) exacerbation; Z20.822 Contact with and (suspected) exposure to COVID-19
CPT/HCPCS: 0241U-QW; 99284-25

== ENCOUNTER 2023-08-29 04:17 | Day surgery (SDC) | payer OTHER ==
[2023-08-28 12:56] VITALS: BMI 30.1
[~2023-08-29 04:17] MED LIST changes: -ACETAMINOPHEN 325 MG TABLET (FP) PO PRN; -CYCLOPENTOLATE HCL 1% OPHTH SOLN 2 ML BOTTLE ONE; +CYCLOPENTOLATE HCL 1% OPHTH SOLN 2 ML BOTTLE OP SCH; -EPINEPHrine/PF 1 MG/1 ML (1:1,000) AMPULE ONE; -KETOROLAC TROMETHAMINE 0.5% EYE DROP 1 DROP DROPS ONE; +KETOROLAC TROMETHAMINE 0.5% EYE DROP 1 DROP DROPS OP SCH; -LIDOCAINE HCL/PF 1% SDV 5ML VIAL ONE; -MIDAZOLAM HCL 2 MG/2 ML SINGLE DOSE VIAL ONE; -OFLOXACIN 0.3% OPHTHALMIC SOLUTION 5 ML BOTTLE ONE; +OFLOXACIN 0.3% OPHTHALMIC SOLUTION 5 ML BOTTLE OP SCH; +PHENYLEPHRINE 2.5% OPHTH SOLN 15 ML BOTTLE OP SCH; -PHENYLEPHRINE 2.5% OPTHALMIC DROP 2ML BOTTLE ONE; -POVIDONE-IODINE 5% OPHTHALMIC PREP 30 ML SOLUTION ONE; -TETRACAINE 0.5% OPHTH SOLN 2 ML BOTTLE ONE; -TROPICAMIDE 1% OPHTH SOLN 15 ML BOTTLE ONE; +TROPICAMIDE 1% OPHTH SOLN 15 ML BOTTLE OP SCH
[2023-08-29] MEDS ORDERED: PHENYLEPHRINE 2.5% OPTHALMIC DROP 2ML BOTTLE ONE (06:55)
[2023-08-29] MEDS ORDERED: KETOROLAC TROMETHAMINE 0.5% EYE DROP 1 DROP DROPS ONE (06:55)
[2023-08-29] MEDS ORDERED: TROPICAMIDE 1% OPHTH SOLN 15 ML BOTTLE ONE (06:55)
[2023-08-29] MEDS ORDERED: OFLOXACIN 0.3% OPHTHALMIC SOLUTION 5 ML BOTTLE ONE (06:56)
[2023-08-29] MEDS ORDERED: VANCOMYCIN 500 MG VIAL (RESTRICTED TO ID ONLY) ONE (07:12)
[2023-08-29] MEDS ORDERED: EPINEPHrine/PF 1 MG/1 ML (1:1,000) AMPULE ONE (07:12)
[2023-08-29] MEDS ORDERED: LIDOCAINE HCL/PF 1% SDV 5ML VIAL ONE (07:12)
[2023-08-29] MEDS ORDERED: TETRACAINE 0.5% OPHTH SOLN 2 ML BOTTLE ONE (07:13)
[2023-08-29] MEDS ORDERED: POVIDONE-IODINE 5% OPHTHALMIC PREP 30 ML SOLUTION ONE (07:13)
[2023-08-29] MEDS ORDERED: MIDAZOLAM HCL 2 MG/2 ML SINGLE DOSE VIAL ONE (07:31)
[2023-08-29] MEDS: TETRACAINE 0.5% OPHTH SOLN 2 ML BOTTLE TP ONE (08:05)
[2023-08-29] MEDS: POVIDONE-IODINE 5% OPHTHALMIC PREP 30 ML SOLUTION OD ONE (08:08)
[2023-08-29] MEDS: BSS (NA/CA/MG/K) BALANCED SALT SOLUTION OPHTH SOLN 15 ML BOTTLE OD ONE (08:14)
[2023-08-29] MEDS: LIDOCAINE HCL 1% PRESERVATIVE FREE - 30ML VIAL IO ONE (08:15)
[2023-08-29] MEDS: CHONDROITIN SU A/HYALUR SOD 1 KIT IO ONE (08:15)
[2023-08-29] MEDS: EPINEPHrine/PF 1 MG/1 ML (1:1,000) AMPULE SQ ONE (08:22)
[2023-08-29] MEDS: VANCOMYCIN 500 MG VIAL (RESTRICTED TO ID ONLY) IVPB ONE ×2 (08:32)
[2023-08-29 08:52] VITALS: RESP 18; TEMP 97.6
[2023-08-29] MEDS ORDERED: ACETAMINOPHEN 325 MG TABLET (FP) ONE (08:54)
[2023-08-29] MEDS: ACETAMINOPHEN 325 MG TABLET (FP) PO PRN (09:41)
[2023-08-29 10:14] VITALS: BP 120/60; PULSE 62
== END 2023-08-29 10:56 | disposition home or self-care (01) ==
LOC: JASU-SURG 04:17
PROVIDERS: ATTEND Ophthalmology
PROC: 08RJ3JZ Replacement of Right Lens with Synthetic Substitute, Percutaneous Approach (ICD-10-PCS; principal; 2023-08-29 08:00)
DX: H26.9 Unspecified cataract (principal)
CPT/HCPCS: V2632

== ENCOUNTER 2023-11-26 19:39 | Emergency (ER) | payer OTHER ==
[2023-11-26 19:48] VITALS: BP 137/75; PULSE 83; RESP 18; TEMP 98; BMI 30.4
[2023-11-26] MEDS ORDERED: ACETAMINOPHEN INJECTION 100 ML IVPB ONE (22:36)
[2023-11-26] MEDS ORDERED: LIDOCAINE 5% TOPICAL PATCH ONE (22:36)
[2023-11-26] MEDS: ACETAMINOPHEN 1000 MG/100 ML BAG IVPB ONE (23:04)
[2023-11-26] MEDS: LIDOCAINE 4% PATCH TP SCH (23:04)
[2023-11-26] MEDS: LIDOCAINE PATCH REMOVAL MC SCH (23:05)
[2023-11-26 23:07] LABS: URINE APPEARANCE CLEAR; URINE BILIRUBIN NEGATIVE (NEGATIVE); URINE COLOR YELLOW; URINE GLUCOSE (UA) NEGATIVE (NEGATIVE); URINE KETONE NEGATIVE (NEGATIVE); URINE LEUK ESTERASE NEGATIVE (NEGATIVE); URINE NITRITE NEGATIVE (NEGATIVE); URINE PROTEIN NEGATIVE (NEGATIVE); URINE UROBILINOGEN 0.2 mg/dL (0.2-1.0)
[2023-11-26 23:08] LABS: BASO % 0.7 % (0-2.0); EOS % 3.2 % (0-4.5); HEMATOCRIT 38.6 % (32.4-45.2); HEMOGLOBIN 12.9 GM/dL (10.7-15.3); LYMPH % 46.2 % (8-40); MCH 27.7 pg (25.7-33.7); MCHC 33.3 g/dl (32.0-36.0); MEAN PLT VOLUME 9.1 fl (7.5-11.1); MONO % 6.7 % (3.8-10.2); NEUT % 43.2 % (42.8-82.8); PLATELET COUNT 238 10^3/uL (134-434); RBC 4.65 M/mm3 (3.60-5.2); RDW 13.6 % (11.6-15.6); WHITE BLOOD COUNT 8.1 K/mm3 (4.0-10.0)
[2023-11-26 23:14] LABS: INR 0.96 (0.83-1.09); PROTHROMBIN TIME (PATIENT) 11.1 SEC (9.7-13.0)
[2023-11-26 23:17] LABS: ACTIVATED PTT 36.2 SECONDS (25.2-36.5)
[2023-11-26 23:28] LABS: POTASSIUM 4.3 mmol/L (3.5-5.1)
[2023-11-26 23:30] LABS: CALCIUM 9.1 mg/dL (8.5-10.1)
[2023-11-26 23:31] LABS: ALBUMIN 3.9 g/dl (3.4-5.0); BLOOD UREA NITROGEN 17.5 mg/dL (7-18); MAGNESIUM 2.1 mg/dL (1.8-2.4)
[2023-11-26 23:34] LABS: CREATININE 0.7 mg/dL (0.55-1.3); PHOSPHOROUS 3.2 mg/dL (2.5-4.9)
[2023-11-26 23:36] LABS: BILIRUBIN,TOTAL 0.4 mg/dL (0.2-1)
== END 2023-11-27 00:20 | disposition home or self-care (01) ==
LOC: JER 19:39
PROC: 3E033NZ Introduction of Analgesics, Hypnotics, Sedatives into Peripheral Vein, Percutaneous Approach (ICD-10-PCS; principal; 2023-11-26)
DX: R10.32 Left lower quadrant pain (principal); R11.0 Nausea
CPT/HCPCS: 36415; 80053; 81003; 83735; 84100; 85025; 85610; 85730; 87077; 87086; 93005; 93010; 99284-25; J0131